=== PATIENT | male | born 1960 | race Caucasian/White ===

== ENCOUNTER 2022-12-12 16:40 | Inpatient (IN) | payer MEDICAID, SELFPAY ==
[2022-12-12] VITALS (12 sets, daily range): BP systolic 116–158; BP diastolic 56–117; PULSE 61–129; RESP 10–38; TEMP 37.2–38.1; O2SAT 90–93
[2022-12-12] MEDS: Normal Saline Flush 10 ML SYR (18:50)
[2022-12-12] MEDS: Ketamine 50 MG/5 ML SYRINGE (18:50)
--- NOTE | 2022-12-12 19:02 | HPE_ITS ---
Date of service: 12/12/22 Time of Service: 19:02 Assessment and Plan Assessment and plan (1) Acute respiratory failure: Status: Acute Assessment and plan: Unclear etiology but likely combination of CHF and COPD. CTA chest w/o pulmonary emboli and no acute process noted. CXR w/o acute process. Cont IV diureses. Cont nebs and Symbicort. He was given a dose of IV solumedrol at [facility]. BIPAP. He is a CO2 retainer. VBG ordered. (2) Congestive heart failure: Status: Chronic Assessment and plan: Previous DC No echocardiogram since 2019. Echo ordered. Cont IV lasix and spironolactone. Cont lisinopril. Pending echo results, will consider more goal directed therapies if indicated. (3) PALMA (nonalcoholic steatohepatitis): Status: Acute Assessment and plan: Mild transaminitis. (4) COPD (chronic obstructive pulmonary disease): Status: Chronic Assessment and plan: As above. (5) Facial laceration: Status: Acute Assessment and plan: Repaired in ED. (6) Troponin level elevated: Status: Acute Assessment and plan: Type II demand ischemia. Troponin trended downward. (7) Facial cellulitis: Status: Acute Assessment and plan: Questionable whether he has cellulitis. There are furuncles on the left jawline/neck that could be a source. Received a dose of vanocmycin 1500 mg IV at [facility]. Will re-evaluate in AM and make decision on further antibiotics. Blood cultures obtained here and are pending. (8) Tinea cruris: Status: Acute Assessment and plan: Also likely tinea shelton and tinea of chest wall. Nystatin powder to groin, cream to chest. He would benefit from selsun shampoo to bearded area. History of Present Illness History of Present Illness Chief Complaint: Shortness of air, facial laceration, fall Narrative: This is a 62 yo male with a PMH of CHF on lasix, COPD not on supplemental O2, CAD, PALMA, liver fibrosis, DM2, Diabetic leg ulcers, tobacco abuse disorder, h/o cocaine use. He presented to the ED at [facility] early in the AM of date of admission. He stated he mis-judged the distance he was from a chair when he went to sit and slipped onto the floor. He hit the right side of his face and incurred a laceration (1 above right eyebrow). Questionable LOCC; called him 2-3 times before he answered. In the ED at [facility] he denied CP/palpitations or dizziness prior to falling. Upon arrival his O2 saturation on RA was 78%. He had a visit with his PCP the day prior to admission and was thought to have a left sided facial cellulitis and was started on Bactrim. His RA O2 saturation in the office then was 83%. It is unclear what his typical RA O2 saturation is. He has a history of anasarca and is on 160mg lasix and 25mg spironolactone daily. Last echocardigram was in 2019; notes from the [facility] ED stated he no showed for a cardiology follow up and echo in 2020. Lab: WBC 11.6. Hgb 14.2. Na 138. K 3.8. AST 75. ALT 70. Creatinine 1.05. Troponin 207 > 129. NTProBNP 885. UDS + for THC. He was initiated on BiPAP; given a total of 3mg Ativan over the course of the day while at [facility], then a dose of Ketamine prior to transfer. Upon arrival at [facility] he was obtunded and noted to actually be on CPAP rather than BIPAP; narcotized by elevated pCO2 most likely. Changed to BiPAP and his level of consciousness improved significantly to where he was wanting to take off the mask and wanting to leave. He then described generalized soreness but no specific area of pain. Another dose of Ketamine, 50mg IV administered, then a precedex drip initiated. Admitted to the ICU. Review of Systems All systems reviewed & are unremarkable except as noted in HPI and below and Unobtainable due to (Limited ROS obtained d/t decreased LOC. ) [facility] All Active Problems (Updated 12/12/22 @ 19:54 by Paul Kc MD) Tinea cruris (Acute) Facial cellulitis (Acute) Troponin level elevated (Acute) Facial laceration (Acute) COPD (chronic obstructive pulmonary disease) (Chronic) PALMA (nonalcoholic steatohepatitis) (Acute) Congestive heart failure (Chronic) Acute respiratory failure (Acute) Social History Smoking/Tobacco Use Status: Current every day Smoking risk assessment performed?: Yes Meds Allergies and Home Medications Allergies Allergy/AdvReac Type Severity Reaction Status Date / Time No Known Allergies Allergy Unverified 12/12/22 19:24 Home Medications Medication Instructions Recorded Confirmed Type albuterol sulfate 90 mcg/actuation 2 puff inhalation Q4H PRN 12/12/22 12/12/22 History aerosol inhaler amitriptyline 10 mg tablet 10 mg PO QHS 12/12/22 12/12/22 History aspirin 81 mg tablet 81 mg PO DAILY 12/12/22 12/12/22 History atorvastatin 80 mg tablet 80 mg PO DAILY 12/12/22 12/12/22 History baclofen 5 mg tablet 5 mg PO 3XD PRN 12/12/22 12/12/22 History blood sugar diagnostic (FreeStyle 12/12/22 12/12/22 History Lite Strips) blood-glucose meter 12/12/22 12/12/22 History budesonide-formoterol HFA 160 2 puff inhalation BID 12/12/22 12/12/22 History mcg-4.5 mcg/actuation aerosol inhaler clopidogrel 75 mg tablet 75 mg PO DAILY 12/12/22 12/12/22 History compression socks, large 12/12/22 12/12/22 History compression socks, large 12/12/22 12/12/22 History dapagliflozin 10 mg tablet 10 mg PO DAILY 12/12/22 12/12/22 History dapagliflozin 10 mg tablet 10 mg PO DAILY 12/12/22 12/12/22 History (Farxiga) ezetimibe 10 mg tablet 10 mg PO DAILY 12/12/22 12/12/22 History folic acid 1 mg tablet 1 mg PO DAILY 12/12/22 12/12/22 History furosemide 40 mg tablet 80 mg PO DAILY 12/12/22 12/12/22 History gabapentin 600 mg tablet 600 mg PO TID 12/12/22 12/12/22 History inhalational spacing device 12/12/22 12/12/22 History (ProChamber) lisinopril 2.5 mg tablet 2.5 mg PO DAILY 12/12/22 12/12/22 History metformin 500 mg tablet 500 mg PO BID 12/12/22 12/12/22 History metoprolol tartrate 50 mg tablet 50 mg PO BID 12/12/22 12/12/22 History sildenafil 50 mg tablet 50 mg PO PRN PRN 12/12/22 12/12/22 History spironolactone 25 mg tablet 25 mg PO DAILY 12/12/22 12/12/22 History sulfamethoxazole 800 1 tab PO BID 12/12/22 12/12/22 History mg-trimethoprim 160 mg tablet trazodone 100 mg tablet 100 mg PO HS 12/12/22 12/12/22 History trazodone 50 mg tablet 50 mg PO QHS 12/12/22 12/12/22 History Exam Narrative Exam Narrative: BiPAP in place. Arouses to physical stimuli. Const General: no acute distress Nutritional Appearance: obese Orientation: obtunded HENVA Head: abrasion Head images: 1. 1 laceration; repaired with suture in place. Hemostatic. Face and sinus: abrasion and laceration Neck Neck: nontender and other (General normal motion noted. ) Resp Effort & Inspection: normal respiratory effort Auscultation: diminished lung sounds, no rales, no rhonchi and no wheezes Cardio Rate: tachycardic Rhythm: regular rhythm Heart Sounds: S1 normal and S2 normal GI Inspection: obesity Palpation: soft Auscultation: normal bowel sounds General: other (Mao catheter present) Skin General skin exam: dry skin (ears) and erythema (vs bruising of left side of face. ) Lesions: lesion noted (left jaw line with pustule(s).) Rashes: other (depigmented, circumferential lesions of chest wall. ) Wounds: wounds noted (known diabetic ulcers of lower exts with bandages in place. ) Neuro General: no focal motor deficits Cranial Nerves: facial strength normal Extrem General: edema Laterality: bilateral (Lower exts. and hands. ) Results Labs Result diagrams: 12/13/22 06:18 12/13/22 06:18 Last Vital Signs Pulse 116 H 12/12/22 18:46 Resp 19 12/12/22 18:31 BP 141/74 H 12/12/22 18:46 Pulse Ox 92 12/12/22 18:46 Time Spent Time spent with Patient: 40-54 minutes Time was spent: preparing to see the patient(eg.review tests), obtaining and/or reviewing separately otained hiistory, ordering medications,tests, procedures, referring, communicating with other health career agent and indepentently interpreting results
[2022-12-12] MEDS: dexmedeTOMidine IN 0.9 % NACL 400 MCG/100 ML BTL IV (19:30)
[2022-12-12 21:18] LABS: BE (Venous) 13 mmol/L (-2-3); HCO3 (Venous) 38 mmol/L (23-28); O2 Sat (Venous) 97 %; TCO2 (Venous) 34 mmol/L (24-29); pH (Venous) 7.39 (7.31-7.41); pO2 (Venous) 96 mmHg
[2022-12-12 21:22] LABS: pCO2 (Venous) 63 mmHg (41-51)
[2022-12-12] MEDS: Nystatin POWDER 60 GM JAR TP (21:46)
[2022-12-12] MEDS: Nystatin CREAM 15 GM TUBE TP (21:46)
[2022-12-12] MEDS: Nicotine 21 MG/24 HR PATCH TD (21:52)
[2022-12-12] MEDS: Enoxaparin 40 MG/0.4 ML SYR SC (21:52)
[2022-12-13] VITALS (29 sets, daily range): BP systolic 108–148; BP diastolic 57–106; PULSE 70–147; RESP 1–38; TEMP 36.7–37.3; O2SAT 86–96
[2022-12-13] MEDS: Albuterol/Ipratropium 3 ML UPD VIAL UPD ×5 (01:54→23:48)
[2022-12-13] MEDS: dexmedeTOMidine IN 0.9 % NACL 400 MCG/100 ML BTL IV (05:25)
[2022-12-13 06:29] LABS: Abs Immature Grans 0.05 10^3/uL (0.0-0.06); Absolute Basophil Count 0.03 10^3/uL (0.0-0.2); Absolute Lymphocyte Count 1.01 10^3/uL (1.2-3.4); Absolute Monocyte Count 1.04 10^3/uL (0.1-0.8); Absolute Neutrophil Count 10.87 10^3/uL (1.2-6.7); BE (Venous) 13 mmol/L (-2-3); Basophils % 0.2; HCO3 (Venous) 39 mmol/L (23-28); HCT 43.3 % (40.0-50.0); HGB 13.4 g/dL (13.5-17.5); Immature Grans % 0.4; Lymphocytes % 7.8; MCH 29.6 pg (27.0-33.0); MCHC 30.9 % (32.0-36.0); MCV 96 fL (80-95); MPV 9.5 fL (8.0-11.0); Neutrophils % 83.6; O2 Sat (Venous) 70 %; Platelet Count 249 10^3/uL (130-400); RBC 4.53 10^6/uL (4.36-5.78); RDW 14.4 % (11.8-14.1); RDW-SD 50.1 fL; TCO2 (Venous) 35 mmol/L (24-29); pH (Venous) 7.33 (7.31-7.41); pO2 (Venous) 39 mmHg
[2022-12-13 06:31] LABS: pCO2 (Venous) 74 mmHg (41-51)
--- NOTE | 2022-12-13 06:45 | RT.EKG_ITS ---
APPROVED REPORT Exam: Resting ECG Reason for Exam: elevated troponin Patient Location: I HR:81 bpm ECG Measurements Heart Rate 81 AXIS GA 211 P 81 QRSd 193 QRS 68 QT 367 T 90 QTc 426 Conclusion Sinus rhythm...normal P axis, V-rate 50- 99 Anteroseptal infarct, age indeterminate...Q >35mS, T neg, V1-V2
[2022-12-13 06:54] LABS: ALT 59 U/L (16-63); AST 71 U/L (15-37); Albumin 3.3 g/dL (3.4-5.0); Alkaline Phosphatase 116 U/L (46-116); Anion Gap 5.7 mmol/L (3-11); BUN 17 mg/dL (7-18); Bilirubin, Total 0.5 mg/dL (0.2-1.0); CO2 36.3 mmol/L (21.0-32.0); Calcium 9.4 mg/dL (8.5-10.1); Chloride 97 mmol/L (98-107); Estimated GFR 85.63 (mL/min/1.73m2); Glucose 141 mg/dL (74-106); Magnesium 2.2 mg/dL (1.8-2.4); Potassium 3.9 mmol/L (3.5-5.1); Sodium 139 mmol/L (136-145); Total Protein 7.8 g/dL (6.4-8.2)
[2022-12-13 06:56] LABS: Troponin I 3742 ng/L (<or=60)
[2022-12-13] MEDS: Budesonide/Formoterol 160/4.5 6 GM 60 PUFF INH IH ×2 (08:09→19:42)
[2022-12-13] MEDS: Lisinopril 5 MG TAB 2.5 MG PO (08:31)
[2022-12-13] MEDS: Clopidogrel 75 MG TAB PO (08:31)
[2022-12-13] MEDS: Furosemide 100 MG/10 ML VIAL 80 MG IVP (08:31)
[2022-12-13] MEDS: Metoprolol 50 MG TAB PO ×2 (08:31→19:42)
[2022-12-13] MEDS: Ezetimibe 10 MG TAB PO (08:31)
[2022-12-13] MEDS: Gabapentin 600 MG TAB PO ×3 (08:31→19:42)
[2022-12-13] MEDS: Aspirin 81 MG CHEW PO (08:32)
[2022-12-13] MEDS: Nystatin POWDER 60 GM JAR TP ×2 (08:35→19:43)
[2022-12-13] MEDS: Nystatin CREAM 15 GM TUBE TP ×3 (08:36→19:43)
[2022-12-13] MEDS: Spironolactone 25 MG TAB PO (08:56)
--- NOTE | 2022-12-13 09:11 | PDOC.CMIN ---
- If Service Date Differs Date of service: 12/13/22 Time of Service: 09:11 Care Management Initial Assess REASON FOR HOSPITALIZATION:: Acute respiratory failure, Cellulitis, NSTEMI PAST MEDICAL HISTORY/PAST SURGICAL HISTORY:: PMH of CHF on lasix, COPD not on supplemental O2, CAD, PALMA, liver fibrosis, DM2, Diabetic leg ulcers, tobacco abuse disorder, h/o cocaine use. He presented to the ED at [facility] early in the AM of date of admission. He stated he mis-judged the distance he was from a chair when he went to sit and slipped onto the floor. He hit the right side of his face and incurred a laceration (1 above right eyebrow). Questionable LOCC; called him 2-3 times before he answered. In the ED at [facility] he denied CP/palpitations or dizziness prior to falling. Upon arrival his O2 saturation on RA was 78%. He had a visit with his PCP the day prior to admission and was thought to have a left sided facial cellulitis and was started on Bactrim. His RA O2 saturation in the office then was 83%. It is unclear what his typical RA O2 saturation is. He has a history of anasarca and is on 160mg lasix and 25mg spironolactone daily. Last echocardigram was in 2019; notes from the [facility] ED stated he no showed for a cardiology follow up and echo in 2020. Tinea cruris (Acute). Facial cellulitis (Acute). Troponin level elevated (Acute). Facial laceration (Acute). COPD (chronic obstructive pulmonary disease) (Chronic). PAMLA (nonalcoholic steatohepatitis) (Acute). Congestive heart failure (Chronic). Acute respiratory failure (Acute) PREVIOUS FUNCTIONAL STATUS/SOCIAL/FAMILY SUPPORTS:: Resides in [place] with , Radha. 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 Pranav shares that employment has been limited due to physical functioning and increased medical issues. CURRENT FUNCTIONAL STATUS:: Pranav has an above the eyebrow laceration with sutures in place. Off Bipap now on nasal cannula, daughter and have been present at bedside. Pranav is pleasant in interaction today, he is sitting up in his chair playing pool on his phone. He is forthcoming with information and agreeable to increased service supports. ADVANCE DIRECTIVES:: None on file. Has patient been provided with info about the portal/API?: No Did the patient sign up for the portal?: No CODE STATUS:: Full Code INSURANCE COVERAGE / FINANCIAL ISSUES:: Medicaid of [place] CURRENT HOME/COMMUNITY SERVICES/EQUIPMENT:: None, currently. PRIMARY CARE PHYSICIAN:: Fidelina oNlasco POTENTIAL DISCHARGE NEEDS:: [facility] referral PATIENT/FAMILY EDUCATION NEEDS:: Review discharge instructions, discuss Ask Me Three. ANTICIPATED BARRIERS TO DISCHARGE:: None identified. TRANSPORTATION:: Via private vehicle with . PLAN:: Pranav will return home when ready per MD. He will follow up with his PCP and plan of care as prescribed, and transport via private vehicle with his . CM will complete referral to [facility] RN CM as discussed.
[2022-12-13] MEDS: VANCOMYCIN/WATER (PEG) 1.25 GM/250 ML BAG IV ×2 (09:19→17:39)
[2022-12-13] MEDS: Enoxaparin 100 MG/ML SYR SC ×2 (09:23→21:55)
[2022-12-13 10:01] LABS: Troponin I 3192 ng/L (<or=60)
--- NOTE | 2022-12-13 10:57 | WOUNDCONS ---
- If Service Date Differs Date of service: 12/13/22 Time of Service: 12:30 Wound Initial Evaluation Narrative: This is a 62 year old male transferred to us from [facility] for acute respiratory failure. He was found to have an initial O2 sat of 78% on arrival to [facility]. He was sedated and placed on CPAP at [facility]. Upon arrival to [facility] he was found to be obtunded. He was placed on Bipap and became more alert. The pt does have a history of Tinea cruris (Acute), and Facial cellulitis (Acute), that the MD has prescribed appropriate treatment for. Wound care has been asked to evaluate the patient's legs. The pt has been seeing [facility] wound care since last fall for swollen, weeping, blistery lower extremities. The pt states that it initially started with scratches to his lower extremities. Then he developed edema and the legs began to weep. For the most part the pt states that compression and an ointment had been used and most recently Unna boots. The pt states that the wounds did heal and he was to follow up with wound care prn. About 3 weeks ago he again developed edema, blisters, and weeping legs. He was seen at [facility] for treatment. At this time I removed Unna boots and compression wraps from his legs. Each dressing had less than 1cc of drainage. Medical Hx: Troponin level elevated (Acute) Facial laceration (Acute) from a fall at home. States he missed the chair. COPD (chronic obstructive pulmonary disease) (Chronic) PALMA (nonalcoholic steatohepatitis) (Acute), with a large round abdomen. Congestive heart failure (Chronic) Acute respiratory failure (Acute) CAD, DM2 (which pt states is a new diagnosis), is a smoker, and has a history of cocaine use. His UDS did come back positive for THC. I did discuss with the MD the use of farxiga has common side effects of fungal infections in regards to the tinea cruris and tinea shelton. Farxiga is not available from our pharmacy so will be held at this time. Pt also states that he has only been doing sponge baths for the past 5 months as he has not been able to get his legs up over the edge of the tub. He states that he recently bought a shower chair. Advised that some shower chairs can be place over the edge of the tub so that he can sit on the bench and then slide over into the tub and can lift his legs over the edge. States that due to the enlarged abdomen, he has had difficulty raising his legs, washing his feet, and dressing his feet. Pt also informed that he can obtain a sponge on a stick that he can use to wash his lower extremities and also apply lotion. He has not been able to get much assistance from his with bathing as they work opposite shifts. WBC 13.0 Troponins 3742, 3192 Blood cultures pending - Wound Bilateral Lower Tib/Fib(lower leg) Wound Type: Other (nothing open or weeping) Wound General Appearance: Healing Well Wound Surrounding Tissue Appearance: [place] - Circulation, Sensation, Motion Edema Degree: Trace Peripheral Pulse Strength: Normal Capillary Refill: Delayed (4 seconds, toes cold to touch) Skin Temperature: Cool Skin Color: [place] - CAROLYN Left CAROLYN: 1.07 Right CAROLYN: 1.11 Blood Pressure: 148/79 Pulse: 78 - Pain Pain Level: 0 Pain Scale Used: Adult Legs cleaned with moistened Debrisoft sponge to remove dry skin. Does have moderate crusting over toes. No open or weeping areas noted on either leg. Denies any painful areas. Lubriderm lotion applied to both legs and allowed to absorb. AMOR Hose applied by primary nurse. Advised pt that due to his CHF, high compression is not recommended. - Photo Photo: - Treatment/Dressing Change Topicals/Ointments: Other (Lubriderm) Cleanse With: Saline, Debrisoft Dressing Types: Other (AMOR Hose) - Nutrition Education Reviewed Nutrition Education: Yes Note: Discussed a diabetic diet with pt. Pt states he does not follow any particular diet as he has not been officially diagnosed with diabetes. Advised that we will have the side trimmer come to see him. - Recomendation Recomendation:: Bilateral lower extremities: 1. Wash lower extremities with soap and water daily. 2. Pat dry. 3. Liberally apply Lubriderm lotion to legs BID. Allow to absorb. 4. Apply AMOR Hose bilaterally in the am, off in at HS. 5. Keep legs elevated while in bed or seated position. Extensive discussion with pt regarding proper foot wear. 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 He now works in a seated position. He tries to ambulate at least every 2 hours. Pt states that [employer] no longer sells retail for shoes, so has heard about [facility] in [place] for shoes. Also advised that he should develop a relationship with a enterprise integration architect for nail care and foot care. Discussed that neuropathy (numbness) is common with diabetes, so protecting his feet is very important. Pt usually walks in his stocking feet at home. Advised that he should wear slippers with a firm sole so that he doesn't get any foreign bodies in his feet. Informed that a small pebble can cause significant damage to feet. Discussed wounds and osteomyelitis. Pt verbalized understanding that amputations are common as well. Also discussed to keep his legs elevated when he can. He does have a recliner at home that he doesn't use. States he sits at the kitchen table when he is home. Advised to sit in his recliner and to keep his legs elevated as much as possible to relieve edema. Also advised to keep his legs elevated while in bed. Physcian/Nurse Practioner Notified: Yes (Dr. Kc) Referrals: Podiatry Treatment Time - Time Total Time Spent with Patient: 60 - Patient Will be Seen Weekly Treatment: 1x/wk - For: For:: 2 weeks
--- NOTE | 2022-12-13 13:50 | PGE_ITS ---
Date of Service Date of service: 12/13/22 Time of Service: 13:50 Assessment and Plan Assessment and plan (1) Acute respiratory failure: Status: Acute Assessment and plan: Unclear etiology but likely combination of CHF and COPD. CTA chest w/o pulmonary emboli and no acute process noted. CXR w/o acute process. Cont IV diureses. Cont nebs and Symbicort. He was given a dose of IV solumedrol at [facility]. BIPAP at night. He is a CO2 retainer. Titrate down supplemental O2 allowing for O2 saturations to be as low as 90%. Actually, may typically have baseline O2 saturations that are lower given he shows CO2 retention with supplemental O2. (2) Congestive heart failure: Status: Chronic Assessment and plan: Previous ID No echocardiogram since 2019. Echo ordered for Wednesday. Cont IV lasix and spironolactone. Cont lisinopril. Pending echo results, will consider more goal directed therapies if indicated. (3) PALMA (nonalcoholic steatohepatitis): Status: Acute Assessment and plan: Mild transaminitis. (4) COPD (chronic obstructive pulmonary disease): Status: Chronic Assessment and plan: As above. (5) Facial laceration: Status: Acute Assessment and plan: Repaired in ED. (6) Troponin level elevated: Status: Acute Assessment and plan: Troponins of 207 > 129 at [facility]. Repeat this AM was 3742. EKG w/o acute ischemic findings. Discussed with cardiology at [facility] [place]. They agreed with initiating ACS protocal with heparin drip. Because the coag analyzer was down, Lovenox 1mg/kg Q12H initiated instead. Trending troponins. Echocardiogram on Wednesday. If stabilizes and shows no urgent need for cardiac catheterization, nuclear med stress test when stabilizes. (7) Facial cellulitis: Status: Acute Assessment and plan: Improving erythema. There are furuncles on the left jawline/neck that could be a source. Received a dose of vanocmycin 1500 mg IV at [facility]. WBC count has decreased. Pharmacy to dose further vanocmycin. Blood cultures obtained here and are pending. (8) Tinea cruris: Status: Acute Assessment and plan: Also likely tinea shelton and tinea of chest wall. Nystatin powder to groin, cream to chest. He would benefit from selsun shampoo to bearded area. (9) Diabetic ulcer of ankle: Status: Acute Assessment and plan: Healed. Skin care. Control glucose and edema. Subjective Subjective Patient reports: no new complaints, feels better, tolerating a regular diet and fever (38.1 at 18:33 12/12/22; afebrile since.); denies nausea or vomiting Interval history since last seen: Tearful this AM when discussing his situation with nursing. He had stated he wanted to leave but then accepted the need to stay for further monitoring and tx. Exam Narrative Exam Narrative: Awake and alert on nasal cannula. Interactive. Const General: no acute distress Nutritional Appearance: obese Orientation: obtunded HENMT Head: abrasion Face and sinus: abrasion and laceration Neck Neck: nontender and other (General normal motion noted. ) Resp Effort & Inspection: normal respiratory effort Auscultation: diminished lung sounds, no rales, no rhonchi and no wheezes Cardio Rate: tachycardic Rhythm: regular rhythm Heart Sounds: S1 normal and S2 normal GI Inspection: obesity Palpation: soft Auscultation: normal bowel sounds General: other (Mao catheter present) Skin General skin exam: dry skin (ears) and erythema (left side of face/improved) Lesions: lesion noted (left jaw line with pustule(s).) Rashes: other (depigmented, circumferential lesions of chest wall. ) Wounds: wounds noted (Healed diabetc ulcers of ankles. ) Neuro General: no focal motor deficits Cranial Nerves: facial strength normal Extrem General: edema Laterality: bilateral (Lower exts. and hands. ) Objective Last Vital Signs Temp 36.7 C 12/13/22 09:43 Pulse 91 H 12/13/22 12:59 Resp 22 12/13/22 12:59 BP 129/73 12/13/22 10:00 Pulse Ox 94 12/13/22 12:59 Laboratory Results - last 24 hr 12/12/22 12/13/22 12/13/22 21:10 06:18 06:18 WBC 13.00 H RBC 4.53 Hgb 13.4 L Hct 43.3 MCV 96 H MCH 29.6 MCHC 30.9 L RDW 14.4 H Plt Count 249 MPV 9.5 Immature Gran % 0.4 Neutrophils % 83.6 Lymphocytes % 7.8 Monocytes % 8.0 Eosinophils % 0.0 Basophils % 0.2 Nucleated RBC % 0.0 Absolute Neutrophils 10.87 H Absolute Lymphocytes 1.01 L Absolute Monocytes 1.04 H Absolute Eosinophils 0.00 Absolute Basophils 0.03 PT INR APTT VBG pH 7.39 VBG pCO2 63 H* VBG pO2 96 VBG HCO3 38 H VBG Total CO2 34 H VBG O2 Saturation 97 VBG Base Excess 13 H Sodium 139 Potassium 3.9 Chloride 97 L Carbon Dioxide 36.3 H Anion Gap 5.7 BUN 17 Creatinine 1.0 Est GFR (CKD-EPI 2020) 85.63 Glucose 141 H Calcium 9.4 Magnesium 2.2 Total Bilirubin 0.5 AST 71 H ALT 59 Alkaline Phosphatase 116 Troponin I 3742 H* Total Protein 7.8 Albumin 3.3 L 12/13/22 12/13/22 12/13/22 06:18 08:34 08:35 WBC RBC Hgb Hct MCV MCH MCHC RDW Plt Count MPV Immature Gran % Neutrophils % Lymphocytes % Monocytes % Eosinophils % Basophils % Nucleated RBC % Absolute Neutrophils Absolute Lymphocytes Absolute Monocytes Absolute Eosinophils Absolute Basophils PT Cancelled INR Cancelled APTT Cancelled VBG pH 7.33 VBG pCO2 74 H* VBG pO2 39 VBG HCO3 39 H VBG Total CO2 35 H VBG O2 Saturation 70 VBG Base Excess 13 H Sodium Potassium Chloride Carbon Dioxide Anion Gap BUN Creatinine Est GFR (CKD-EPI 2020) Glucose Calcium Magnesium Total Bilirubin AST ALT Alkaline Phosphatase Troponin I Total Protein Albumin 12/13/22 09:28 WBC RBC Hgb Hct MCV MCH MCHC RDW Plt Count MPV Immature Gran % Neutrophils % Lymphocytes % Monocytes % Eosinophils % Basophils % Nucleated RBC % Absolute Neutrophils Absolute Lymphocytes Absolute Monocytes Absolute Eosinophils Absolute Basophils PT INR APTT VBG pH VBG pCO2 VBG pO2 VBG HCO3 VBG Total CO2 VBG O2 Saturation VBG Base Excess Sodium Potassium Chloride Carbon Dioxide Anion Gap BUN Creatinine Est GFR (CKD-EPI 2020) Glucose Calcium Magnesium Total Bilirubin AST ALT Alkaline Phosphatase Troponin I 3192 H* Total Protein Albumin Time Spent with Patient Time Spent with Patient: 25-34 minutes Time was spent: preparing to see the patient(eg.review tests), ordering medications,tests, procedures, indepentently interpreting results and counseling the patient
[2022-12-13 13:59] LABS: Troponin I 3203 ng/L (<or=60)
[2022-12-13 14:18] LABS: APTT (LRH) 29.6 secs (21.3-28.4); Protime (LRH) 10.2 secs (9.1-10.6)
[2022-12-13 16:56] LABS: Troponin I 2726 ng/L (<or=60)
[2022-12-13] MEDS: Normal Saline Flush 10 ML SYR ×2 (17:39→17:48)
[2022-12-13] MEDS: Atorvastatin 40 MG TAB 80 MG PO (19:42)
[2022-12-13] MEDS: Normal Saline 250 ML (23:38)
[2022-12-14] VITALS (48 sets, daily range): BP systolic 100–149; BP diastolic 52–116; PULSE 77–118; RESP 1–31; TEMP 36.9–37.5; O2SAT 83–100
[2022-12-14] MEDS: VANCOMYCIN/WATER (PEG) 1.25 GM/250 ML BAG IV ×2 (03:43→18:02)
[2022-12-14 06:19] LABS: Abs Immature Grans 0.06 10^3/uL (0.0-0.06); Absolute Basophil Count 0.04 10^3/uL (0.0-0.2); Absolute Eosinophil Count 0.11 10^3/uL (0.0-0.7); Absolute Lymphocyte Count 1.82 10^3/uL (1.2-3.4); Absolute Monocyte Count 0.94 10^3/uL (0.1-0.8); Basophils % 0.4; HCT 44.1 % (40.0-50.0); HGB 13.6 g/dL (13.5-17.5); Immature Grans % 0.6; Lymphocytes % 16.8; MCH 29.4 pg (27.0-33.0); MCHC 30.8 % (32.0-36.0); MCV 96 fL (80-95); MPV 10.2 fL (8.0-11.0); Monocytes % 8.7; Neutrophils % 72.5; Platelet Count 226 10^3/uL (130-400); RBC 4.62 10^6/uL (4.36-5.78); RDW 14.6 % (11.8-14.1); RDW-SD 50.5 fL; WBC 10.84 10^3/uL (4.4-10.8)
[2022-12-14 06:27] LABS: Absolute Neutrophil Count 7.86 10^3/uL (1.2-6.7)
[2022-12-14 06:34] LABS: ALT 54 U/L (16-63); AST 61 U/L (15-37); Alkaline Phosphatase 104 U/L (46-116); Anion Gap 1.6 mmol/L (3-11); BUN 23 mg/dL (7-18); Bilirubin, Total 0.6 mg/dL (0.2-1.0); CO2 40.4 mmol/L (21.0-32.0); CREATININE 1.1 mg/dL (0.70-1.30); Calcium 9.1 mg/dL (8.5-10.1); Chloride 98 mmol/L (98-107); Estimated GFR 76.37 (mL/min/1.73m2); Glucose 108 mg/dL (74-106); Potassium 3.7 mmol/L (3.5-5.1); Sodium 140 mmol/L (136-145); Total Protein 7.2 g/dL (6.4-8.2)
[2022-12-14 06:36] LABS: Troponin I 1808 ng/L (<or=60)
--- NOTE | 2022-12-14 07:03 | W.PULMCC ---
General Date of Service Date of service: 12/14/22 Time of Service: 07:03 Reason for Admission to ICU: Hypoxic and hypercapnic respiratory failure Assessment and Plan Assessment and plan (1) NSTEMI (non-ST elevated myocardial infarction): Status: Acute (2) Respiratory failure with hypoxia and hypercapnia: Status: Acute (3) Diabetic ulcer of ankle: Status: Acute (4) Facial cellulitis: Status: Acute (5) COPD exacerbation: Status: Acute (6) CHF exacerbation: Status: Acute (7) PALMA (nonalcoholic steatohepatitis): Status: Acute (8) Leukocytosis: Status: Acute Assessment and plan: This is a 62 yo admitted to the ICU for hypoxic and hypercapnic respiratory failure due to COPD and CHF exacerbation as well as a facial cellulitis. His CO2 retention is chronic but should be evaluated as an outpatient to assess the need for NIV. I have adjusted his inhaler regimen to include LAMA coverage and have decreased his ICS. I also have started him on treatment for a COPD exacerbation - prednisone and azithromycin. He is being actively diuresed. Recommendations Pulmonary: Hypoxic and Hypercapnic respiratory failure - wean O2 needs - no BiPAP tonight - evaluation as an outpatient in 2-4 weeks for NIV needs with me COPD exacerbation - started prednisone 40mg for 5 days - started azithromycin for 5 days - made Duonebs QID from q6h - changed Symbicort 160 to 80 dosage - added Spiriva Cardiac: NSTEMI - received therapeutic Lovenox and Plavix - [facility] [place] - no urgent cath need - MPI when stable - echo today - no need to continue trending troponins CHF Exacerbation - continue with diuresis - if bicarb become too high >50 can diurese with Diamox Renal: No acute concerns - strict I/O's I&O: Intake & Output 12/11/22 12/12/22 12/13/22 12/14/22 23:59 23:59 23:59 23:59 Intake Total 64.685 / 64.685 1537.736 / 1537.736 250 / 250 Output Total 2600 / 2600 535 / 535 Balance 64.685 / 64.685 -1062.264 / -1062.264 -285 / -285 Weight 99.3 kg 99 kg Daily Fluid Goal:: negative 1L in next 24 hours GI Nutrition: PALMA - not in acute liver failure Date of Last Bowel Movement: 12/11/22 Infectious Disease: Facial cellulitis - on vanc - no growth of blood cultures - MRSA screen ordered Hematologic: Leukocytosis - due to infection Endocrine: No acute concerns Lines: PIV Prophylaxis: on Lovenox Code Status: Resuscitation Status Full Code Subjective Critical and life-threatening events over the past 24 hours: This is co-morbidly ill 62 yo with COPD, CHF, diabetes and PALMA who is admitted after transfer from [facility] for hypoxic respiratory failure. He was started on BiPAP and was improving. He remains on BiPAP at night currently. He also had a troponin elevation, and is being treated for NSTEMI per [facility] cardiology. While at [facility] he did have respiratory acidosis with a pH of 7.19 and a CO2 of >91. Currently his pH is corrected and his CO2 is in the 60's-70's (more likely his baseline). He had a CTPE at [facility] with no PE or other acute abnormality. His last echo from [facility] was 06/10/20 and shows an EF 65%, normal RV size and function. Mild , moderate AI. PAP normal at 20mmHg. He is receiving vancomycin out of concern for a facial cellulitis. He is not receiving treatment for a COPD exacerbation, however is being actively diuresed. He states he is feeling better and has noticed the swelling decrease in his lower legs. He tells me he has had a PFT a long time ago but cannot recall when exactly. There were no PFT reports in [facility] EMR that I could see. Exam Narrative Exam Narrative: Gen: NAD, normal respiratory effort, well-nourished HENT: PERRL, abrasions and lacerations on face. hematoma right eye Chest: No respiratory distress, normal appearance of chest, clear to auscultation bilaterally, some bibasilar crackles, no wheeze Heart: regular rate and rhythym, no murmurs, rubs or gallops Abdomen: Non-distended, soft, non tender Extremities: No clubbing, 2+ edema of thigh, cyanosis, rashes Neuro: AAOx3 , non focal Psych: cooperative, appropriate mental affect Most Recent VS/Results Last Vital Signs Temp 36.9 C 12/14/22 00:02 Pulse 98 H 12/14/22 04:22 Resp 20 02/06/23 04:22 BP 127/69 12/14/22 04:00 Pulse Ox 99 12/14/22 04:22 Laboratory Results - last 24 hr 12/13/22 12/13/22 12/13/22 08:34 08:35 09:28 WBC RBC Hgb Hct MCV MCH MCHC RDW Plt Count MPV Immature Gran % Neutrophils % Lymphocytes % Monocytes % Eosinophils % Basophils % Nucleated RBC % Absolute Neutrophils Absolute Lymphocytes Absolute Monocytes Absolute Eosinophils Absolute Basophils PT Cancelled INR Cancelled APTT Cancelled Sodium Potassium Chloride Carbon Dioxide Anion Gap BUN Creatinine Est GFR (CKD-EPI 2020) Glucose Calcium Total Bilirubin AST ALT Alkaline Phosphatase Troponin I 3192 H* Total Protein Albumin 12/13/22 12/13/22 12/13/22 09:28 09:28 13:25 WBC RBC Hgb Hct MCV MCH MCHC RDW Plt Count MPV Immature Gran % Neutrophils % Lymphocytes % Monocytes % Eosinophils % Basophils % Nucleated RBC % Absolute Neutrophils Absolute Lymphocytes Absolute Monocytes Absolute Eosinophils Absolute Basophils PT 10.2 INR 1.0 APTT 29.6 H Sodium Potassium Chloride Carbon Dioxide Anion Gap BUN Creatinine Est GFR (CKD-EPI 2020) Glucose Calcium Total Bilirubin AST ALT Alkaline Phosphatase Troponin I 3203 H* Total Protein Albumin 12/13/22 12/14/22 12/14/22 16:25 06:00 06:00 WBC 10.84 H RBC 4.62 Hgb 13.6 Hct 44.1 MCV 96 H MCH 29.4 MCHC 30.8 L RDW 14.6 H Plt Count 226 MPV 10.2 Immature Gran % 0.6 Neutrophils % 72.5 Lymphocytes % 16.8 Monocytes % 8.7 Eosinophils % 1.0 Basophils % 0.4 Nucleated RBC % 0.0 Absolute Neutrophils 7.86 H Absolute Lymphocytes 1.82 Absolute Monocytes 0.94 H Absolute Eosinophils 0.11 Absolute Basophils 0.04 PT INR APTT Sodium 140 Potassium 3.7 Chloride 98 Carbon Dioxide 40.4 H Anion Gap 1.6 L BUN 23 H Creatinine 1.1 Est GFR (CKD-EPI 2020) 76.37 Glucose 108 H Calcium 9.1 Total Bilirubin 0.6 AST 61 H ALT 54 Alkaline Phosphatase 104 Troponin I 2726 H* 1808 H* Total Protein 7.2 Albumin 3.0 L Review of Systems All systems reviewed & are unremarkable except as noted in HPI and below Time spent with patient Time spent in Critical Care: 60 Time spent in Critical care included: Coordination of care, Chart review, Documenting critically ill care, Time at immediate bedside and Discussing critically ill care with other medical staff Multi-Disciplinary Checklist Lines/Tubes CENTRAL LINE: no ARTERIAL LINE: no SPIVEY: yes, Spivey Day#: 3 ENDOTRACHEAL TUBE: no ICU Maintenance GLUCOSE 140-180mg/dL: yes NUTRITION AT GOAL: yes PRESSURE ULCER: yes, Ankle Grade: 1 RESTRAINTS: no ANTIBIOTICS(if yes, consider Stewardship): Yes Social Issues FAMILY UPDATED: no, Reason/Intervention: Patient able PT/OT: no, Reason/Intervention: not needed 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
[2022-12-14] MEDS: Albuterol/Ipratropium 3 ML UPD VIAL UPD ×4 (08:13→20:27)
[2022-12-14] MEDS: Budesonide/Formoterol 80/4.5 6.9 GM 60 PUFF INH IH ×2 (08:14→20:27)
[2022-12-14] MEDS: Tiotropium Bromide-Respimat 10 PUFF INH 2 PUFF IH (08:15)
[2022-12-14] MEDS: Aspirin 81 MG CHEW PO (08:34)
[2022-12-14] MEDS: Clopidogrel 75 MG TAB PO (08:35)
[2022-12-14] MEDS: Ezetimibe 10 MG TAB PO (08:35)
[2022-12-14] MEDS: predniSONE 20 MG TAB 40 MG PO (08:35)
[2022-12-14] MEDS: Metoprolol 50 MG TAB PO ×2 (08:35→20:27)
[2022-12-14] MEDS: Lisinopril 5 MG TAB 2.5 MG PO (08:36)
[2022-12-14] MEDS: Spironolactone 25 MG TAB PO (08:36)
[2022-12-14] MEDS: Azithromycin 250 MG TAB PO (08:36)
[2022-12-14] MEDS: Nystatin POWDER 60 GM JAR TP ×2 (08:40→20:29)
[2022-12-14] MEDS: Nystatin CREAM 15 GM TUBE TP ×3 (08:41→20:30)
[2022-12-14] MEDS: Normal Saline Flush 10 ML SYR (08:41)
[2022-12-14] MEDS: Furosemide 100 MG/10 ML VIAL 80 MG IVP (08:53)
[2022-12-14] MEDS: Gabapentin 600 MG TAB PO ×3 (08:54→20:27)
--- NOTE | 2022-12-14 10:30 | DI.US_ITS ---
APPROVED REPORT EXAM: Comprehensive 2D, Doppler, and color-flow Echocardiogram Patient Location: In-Patient Room/Bed: QPE544 Patternmaker All Around: Farrah Davis RDCS (AE) Indications: Acute respiratory failure, anasarca, copd, elevated troponin, smoker Other Information Study Quality: Adequate Conclusion Normal left ventricular wall thickness and chamber size. Estimated ejection fraction is 55 to 60%. Wall motion is normal Normal right ventricular size and systolic function Both atria are normal in size Aortic valve is sclerotic and probably trileaflet with mild regurgitation Committed right ventricular systolic pressure is 33 mmHg Wall motion Left Ventricle The left ventricle is normal size. The left ventricular systolic function is normal. The left ventric ular ejection fraction is within the normal range. There is normal left ventricular wall thickness. T here is normal LV segmental wall motion. There is no ventricular septal defect visualized. LVEF is 55 -60%. Right Ventricle The right ventricle is normal size. The right ventricular systolic function is normal. The RVSP is 33 .3 mmHg. Atria The left atrium size is normal. The right atrium size is normal. The interatrial septum is intact wit h no evidence for an atrial septal defect. Aortic Valve The Aortic valve is sclerotic. Aortic valve is probably trileaflet. No hemodynamically significant va lvular aortic stenosis. Mild aortic regurgitation. Mitral Valve The mitral valve is normal in structure. No evidence of mitral valve stenosis. Trace mitral regurgit ation. Tricuspid Valve The tricuspid valve is normal in structure. There is no tricuspid valve stenosis. Trace to mild tricu spid regurgitation. Pulmonic Valve The pulmonary valve is normal in structure. There is no pulmonic valvular stenosis. Trace pulmonic re gurgitation. Great Vessels The aortic root is normal in size. The ascending aorta is normal in size. Aortic arch is not well vis ualized. IVC is normal in size and collapses >50% with inspiration. Pericardium There is no pericardial effusion. 2D Dimensions IVSD d PLAX 0.90 cm M: 0.6-1.2 LV Vol A2C d MOD 107.8 mL LVPW d PLAX 0.91 cm M: 0.6 - 1.2 LV Vol A4C d MOD 129.3 mL LVID d PLAX 4.49 cm M: 4.2 - 5.8 LA vol/ BSA A4C s A-L 18.4 mL/m2 LVDs 3.15 cm M: 2.5 - 4.0 LA Area A4C s MOD 15.47 cm2 Ao Root d 3.36 cm M: 3.1 - 3.7 LV EF A4C MOD 55.9 % RA Area A4C 13.49 cm2 LV EF A2C MOD 60.3 % RA Vol/ BSA A4C s A-L 17.2 mL/m2 LV EF Biplane MOD 57.7 % Ao Asc Diam d 3.34 cm M: 2.6 - 3.4 SV 69.47 mL LV EF Teichholz 56.2 % SV Index 32.09 mL/m2 LVEF (Renae's) 57.70 % M: 52 - 72 LV Volume 88.00 mL M: 62 - 150 LV Volume Index 40.55 mL/m2 M: 34 - 74 LV Vol Biplane MOD 120.4 mL FS 29.20 % M-Mode TAPSE 2.56 cm (M/F) >1.7 LV Diastology MV E' medial 0.121 (>0.07 m/s) E/A Ratio 1.1 LV E/e MED 8.90 (<14) MV E Vmax 1.08 (0.4-1.3 m/s) MV E' lateral 0.124 (>0.1 m/s) MV A Vmax 1.00 (0.4-1.3 m/s) LV E/e LAT 8.65 (<14) MV E/A Ratio 1.06 MV E/E' medial 8.92 MV E/E' lateral 8.68 Aortic Valve LVOT Area 3.16 cm2 AoV Area Vmax 1.80 cm2 LVOT Vmax 1.25 m/s AoV Area/ BSA (Vmax) 0.83 cm2/m2 LVOT Mean Arjun. 0.90 m/s PEGGY Mean Arjun. 1.88 cm2 LVOT Peak Grad 6.2 mmHg PEGGY Mean Arjun. Index 0.87 cm2/m2 LVOT Mean Grad 3.7 mmHg AR DT 1227 msec LVOT VTI 0.237 m AR PHT 356 msec LVOT Diam s 2.00 cm AoV Vmax 2.19 m/s Velocity Ratio 0.57 AoV Mean Arjun. 1.50 m/s AoV Peak Grad 19.2 mmHg LVOT SV 75.03 mL AoV Mean Grad 10.3 mmHg AoV VTI 0.387 m AoV Area VTI 1.94 cm2 AoV Area/ BSA (VTI) 0.90 cm/m2 Mitral Valve MV DT 259 (160-240 msec) MV PHT 75 msec MV Area PHT 2.93 cm2 MV VTI 0.294 m MV Area VTI 2.55 (4.0-6.0 cm2) Pulmonary Valve PV Vmax 0.86 (0.5-1.5 m/s) RVOT Peak Gr. 2.03 mmHg PV Peak Grad 3.0 mmHg RVOT Mean Gr. 0.90 mmHg PV Mean Grad 1.7 mmHg RVOT VTI 0.108 m PV VTI 0.154 m RVOT Vmax 0.71 m/s Tricuspid Valve TR Peak Grad 30.3 mmHg TR Vmax 2.75 m/s RA Pressure 3.00 mmHg RVSP (TR) 33.3 mmHg
[2022-12-14] MEDS: Enoxaparin 100 MG/ML SYR SC (11:05)
--- NOTE | 2022-12-14 11:23 | PHA.REVIEW2 ---
Pharmacy Admission Review - Admission Clinical Review (Last Reviewed 12/12/22 @ 19:19 by Paul Kc MD) Leukocytosis (Acute) CHF exacerbation (Acute) COPD exacerbation (Acute) Respiratory failure with hypoxia and hypercapnia (Acute) NSTEMI (non-ST elevated myocardial infarction) (Acute) Diabetic ulcer of ankle (Acute) Tinea cruris (Acute) Facial cellulitis (Acute) Troponin level elevated (Acute) Facial laceration (Acute) PALMA (nonalcoholic steatohepatitis) (Acute) Acute respiratory failure (Acute) No Known Allergies Allergy (Unverified 12/12/22 19:24) Resuscitation Status Full Code Height 5 ft 10 in Weight 99 kg - Renal Dosing Renal Dosing: BUN 23 mg/dL (7-18) H 12/14/22 06:00 Creatinine 1.1 mg/dL (0.70-1.30) 12/14/22 06:00 Medications needing adjustments: Reviewed (crcl = 83, no adjustments needed) - Anticoagulation Anticoagulation: Hgb 13.6 g/dL (13.5-17.5) 12/14/22 06:00 Hct 44.1 % (40.0-50.0) 12/14/22 06:00 Plt Count 226 10^3/uL (130-400) 12/14/22 06:00 INR 1.0 (0.9-1.1) 12/13/22 09:28 Creatinine 1.1 mg/dL (0.70-1.30) 12/14/22 06:00 DVT Prophylaxis: Reviewed Medications: Enoxaparin Therapeutic Anticoagulation: Reviewed Medications: Enoxaparin (ACS: enoxaparin 100 mg q12h d/t inability to use heparin drip (coag machine down). also on plavix) - Opiate Usage Evaluate Pain Scale/Pains Meds: N/A - Relevant Labs Sodium 140 mmol/L (136-145) 12/14/22 06:00 Potassium 3.7 mmol/L (3.5-5.1) 12/14/22 06:00 Chloride 98 mmol/L (98-107) 12/14/22 06:00 Magnesium 2.2 mg/dL (1.8-2.4) 12/13/22 06:18 Electrolytes, C-Reactive P, ESR: Reviewed - DM Control DM Control: Glucose 108 mg/dL (74-106) H 12/14/22 06:00 Finger Stick Blood Glucose 108 Finger Stick Blood Glucose 108 Finger Stick Blood Glucose 108 Finger Stick Blood Glucose 108 DM Control: Reviewed (on sliding scale insulin aspart with meals, does not use insulin at home - takes farxiga (not available here) and metformin (held)) - Cardiac Review Cardiac Review: Troponin I 1808 ng/L (<or=60) H* 12/14/22 06:00 BP, HR, EF%: Reviewed (NSTEMI - on therapeutic lovenox + plavix. Echo today. Diuresing (lasix 80 mg IV daily + spironolactone). On lisinopril, metoprolol, spironolactone (home doses)) - Qtc Review QTc: Reviewed (QTc = 426 on 12/13) - IV to PO Switch IV Medications: Reviewed (lasix IV, switch to PO when appropriate) - Home Meds Home Med List reviewed: Reviewed Relevent Home Meds Not ordered & why?: symbicort inhaler reduced dose from 160/4.5 to 80/4.5 today. Farxiga ordered but not available (pt would need to have his own supply brought in). Metformin not ordered (controlled on sliding scale insulin with meals). Started on bactrim outpatient for cellulitis, now on vanco - Current meds Current Medication Order Review: Reviewed Antibiotic Activity - Pharmacy Antibiotic Review Pharmacy Antibiotic Activity: Reviewed, no change - Antibiotic Information Antibiotic Review Info: facial cellulitis: vancomycin 1.25 g Q10h --> trough today at 1300. COPD exacerbation: azithromycin 250 mg PO daily (plus prednisone 40 mg daily)
[2022-12-14] MEDS: Insulin Aspart 300 UNITS/3 ML PEN SC ×2 (12:01→17:00)
[2022-12-14 13:37] LABS: Vancomycin, Trough 18.4 ug/mL (10.0-20.0)
--- NOTE | 2022-12-14 14:34 | PDOC.CMPRO ---
- If Service Date Differs Date of service: 12/14/22 Time of Service: 14:34 Care Management Progress Note S/O: Pranav remains acute in the ICU at this time, pulmonary consult completed today as well as ECHO; awaiting treatment plan updates. He is being trialed on room air this afternoon. [facility] RN CM referral faxed as discussed. Pranav remains pleasant and talkative in interaction, CM continues to follow. A: 62 year old male admitted to [facility] P: Pranav will return home when ready per MD. He will follow up with his PCP and plan of care as prescribed, and transport via private vehicle with his . CM completed [facility] RN CM referral and continues to follow.
--- NOTE | 2022-12-14 15:30 | W.PM.PROGNOT ---
Date of Service Date of service: 12/14/22 Time of Service: 15:39 Assessment and Plan Assessment and plan (1) Acute respiratory failure: Status: Acute Assessment and plan: Etiology; combination of CHF and COPD. CTA chest w/o pulmonary emboli and no acute process noted. CXR w/o acute process. Now resolving and on RA. Cont nebs and Symbicort. He was given a dose of IV solumedrol at [facility]. Will hold BiPAP tonight. He will be following up with Dr Cary and will most certainly qualify for a noninvasive ventilatory device d/t his significant CO2 retention. (2) Congestive heart failure: Status: Chronic Assessment and plan: Previous NC Diuresing well. Cont IV lasix 80mg daily and spironolactone tomorrow. Planning on home tomorrow and will continue oral lasix and his spironolactone. He could likely stop lasix in near future if adherant to a low Na diet. Cont lisinopril. Echocardiogram: Normal left ventricular wall thickness and chamber size.? Estimated ejection fraction is 55 to 60%.? Wall motion is normal (3) PALMA (nonalcoholic steatohepatitis): Status: Acute Assessment and plan: Mild transaminitis. (4) COPD (chronic obstructive pulmonary disease): Status: Chronic Assessment and plan: As above. (5) Facial laceration: Status: Acute Assessment and plan: Repaired in ED. (6) Troponin level elevated: Status: Acute Assessment and plan: Troponins of 207 > 129 at [facility]. Troponins at [facility]: 3742 > 3192 > 3203 > 2726 > 1808. Discussed with cardiology at [facility]. They agreed with initiating ACS protocal with heparin drip. Because the coag analyzer was down, Lovenox 1mg/kg Q12H initiated instead. NSTEMI type II. Demand ischemia d/t respiratory failure. Echocardiogram as above. If stabilizes and shows no urgent need for cardiac catheterization, nuclear med stress test when stabilizes. (7) Facial cellulitis: Status: Acute Assessment and plan: Improving erythema. There are furuncles on the left jawline/neck that could be a source. Received a dose of vanocmycin 1500 mg IV at [facility]. WBC count has decreased. Pharmacy to dose further vanocmycin. Blood cultures obtained here and are negative to date Planning on continuing previously prescribed Bactrim when discharged. (8) Tinea cruris: Status: Acute Assessment and plan: Also likely tinea shelton and tinea of chest wall. Nystatin powder to groin, cream to chest. He would benefit from selsun shampoo to bearded area. (9) Diabetic ulcer of ankle: Status: Acute Assessment and plan: Healed. Skin care. Control glucose and edema. Subjective Subjective Patient reports: no new complaints, feels better, tolerating a regular diet and afebrile; denies nausea, vomiting or shortness of breath Exam Narrative Exam Narrative: Sitting in chair eating. Interactive. Const General: no acute distress Nutritional Appearance: obese HENMT Head: abrasion and other (Right periorbital ecchymosis) Face and sinus: abrasion and laceration Eyes General: appearance normal, both eyes and all related structures Sclera: sclerae normal Neck Neck: nontender and other (General normal motion noted. ) Resp Effort & Inspection: normal respiratory effort Auscultation: diminished lung sounds, no rales, no rhonchi and no wheezes Cardio Rate: regular rate Rhythm: regular rhythm Heart Sounds: S1 normal and S2 normal GI Inspection: obesity Palpation: soft Auscultation: normal bowel sounds General: other (Mao catheter present) Skin General skin exam: dry skin (ears) and erythema (left side of face/improved) Lesions: lesion noted (left jaw line with pustule(s).) Rashes: other (depigmented, circumferential lesions of chest wall. ) Wounds: wounds noted (Healed diabetc ulcers of ankles. ) Neuro General: no focal motor deficits Cranial Nerves: facial strength normal Extrem General: no pedal edema and no calf tenderness Psych Appearance: grossly normal Mental Status: mental status grossly normal Speech and Movement: speech clear Mood: congruent mood Affect: normal affect Objective Last Vital Signs Temp 37.5 C 12/14/22 12:25 Pulse 105 H 12/14/22 14:00 Resp 20 12/14/22 14:01 BP 122/81 12/14/22 14:00 Pulse Ox 89 L 12/14/22 14:01 Laboratory Results - last 24 hr 12/13/22 12/14/22 12/14/22 16:25 06:00 06:00 WBC 10.84 H RBC 4.62 Hgb 13.6 Hct 44.1 MCV 96 H MCH 29.4 MCHC 30.8 L RDW 14.6 H Plt Count 226 MPV 10.2 Immature Gran % 0.6 Neutrophils % 72.5 Lymphocytes % 16.8 Monocytes % 8.7 Eosinophils % 1.0 Basophils % 0.4 Nucleated RBC % 0.0 Absolute Neutrophils 7.86 H Absolute Lymphocytes 1.82 Absolute Monocytes 0.94 H Absolute Eosinophils 0.11 Absolute Basophils 0.04 Sodium 140 Potassium 3.7 Chloride 98 Carbon Dioxide 40.4 H Anion Gap 1.6 L BUN 23 H Creatinine 1.1 Est GFR (CKD-EPI 2020) 76.37 Glucose 108 H Calcium 9.1 Total Bilirubin 0.6 AST 61 H ALT 54 Alkaline Phosphatase 104 Troponin I 2726 H* 1808 H* Total Protein 7.2 Albumin 3.0 L Vancomycin Trough 12/14/22 13:00 WBC RBC Hgb Hct MCV MCH MCHC RDW Plt Count MPV Immature Gran % Neutrophils % Lymphocytes % Monocytes % Eosinophils % Basophils % Nucleated RBC % Absolute Neutrophils Absolute Lymphocytes Absolute Monocytes Absolute Eosinophils Absolute Basophils Sodium Potassium Chloride Carbon Dioxide Anion Gap BUN Creatinine Est GFR (CKD-EPI 2020) Glucose Calcium Total Bilirubin AST ALT Alkaline Phosphatase Troponin I Total Protein Albumin Vancomycin Trough 18.4 Time Spent with Patient Time Spent with Patient: 25-34 minutes Time was spent: preparing to see the patient(eg.review tests), ordering medications,tests, procedures and indepentently interpreting results
[2022-12-14] MEDS: Atorvastatin 40 MG TAB 80 MG PO (20:27)
[2022-12-14] MEDS: Nicotine 21 MG/24 HR PATCH TD (21:18)
[2022-12-15] VITALS (19 sets, daily range): BP systolic 117–143; BP diastolic 60–94; PULSE 74–117; RESP 4–30; TEMP 36.8–37.2; O2SAT 80–93
[2022-12-15] MEDS: VANCOMYCIN/WATER (PEG) 1.25 GM/250 ML BAG IV (04:30)
--- NOTE | 2022-12-15 07:11 | W.PULMCC ---
General Date of Service Date of service: 12/15/22 Time of Service: 07:11 Reason for Admission to ICU: Hypoxic and hypercapnic respiratory failure Assessment and Plan Assessment and plan (1) NSTEMI (non-ST elevated myocardial infarction): Status: Acute (2) Respiratory failure with hypoxia and hypercapnia: Status: Acute (3) Diabetic ulcer of ankle: Status: Acute (4) Pulmonary hypertension: Status: Acute (5) Facial cellulitis: Status: Acute (6) COPD exacerbation: Status: Acute (7) CHF exacerbation: Status: Acute (8) PALMA (nonalcoholic steatohepatitis): Status: Acute (9) Leukocytosis: Status: Acute Assessment and plan: This is a 62 yo admitted to the ICU for hypoxic and hypercapnic respiratory failure due to COPD and CHF exacerbation as well as a facial cellulitis. His CO2 retention is chronic but should be evaluated as an outpatient to assess the need for NIV. He tolerated the night without BiPAP and is safe to go home without NIV from the hospital. I have set up a f/u visit with myself to thoroughly evaluate this. Based on his echo he does have pulmonary hypertension (PAP around 45mmHg) which is likely combined group 2 and 3 given his cardiac and pulmonary history. Recommendations Pulmonary: Hypoxic and Hypercapnic respiratory failure - wean O2 needs - did fine without BiPAP overnight - evaluation as an outpatient in 2-4 weeks for NIV needs with me COPD exacerbation - prednisone 40mg for 5 days - azithromycin for 5 days - Duonebs QID - Symbicort 80 - Spiriva - I will sent inhaler Rx's to his pharmacy Cardiac: NSTEMI - received therapeutic [place] [facility] [place] - no urgent cath need - MPI when stable - no need to continue trending troponins CHF Exacerbation - transition to home Lasix and spironolactone - daily weights at home Pulmonary Hypertension, group 2 and 3 - optimization of cardiac and pulmonary disease Renal: No acute concerns - strict I/O's I&O: Intake & Output 12/12/22 12/13/22 12/14/22 12/15/22 23:59 23:59 23:59 23:59 Intake Total 64.685 / 64.685 1537.736 / 2453.662 7131 / 2510 Output Total 2600 / 2600 1984 1200 / 1200 Balance 64.685 / 64.685 -1062.264 / -1062.264 525 / 525 -1190 / -1190 Weight 99.3 kg 99 kg 98.5 kg Daily Fluid Goal:: negative 1L in next 24 hours GI Nutrition: PALMA - not in acute liver failure Date of Last Bowel Movement: 12/11/22 Infectious Disease: Facial cellulitis - on vanc, can be sent home on Bactrim - no growth of blood cultures - MRSA screen ordered Hematologic: Leukocytosis - due to infection Neurologic: No acute concerns Endocrine: No acute concerns Lines: PIV Code Status: Resuscitation Status Full Code Subjective Critical and life-threatening events over the past 24 hours: Pranav continues to improve. He tolerated the night without BiPAP and is on room air with borderline SpO2. His echo was completed and was reassuring with an RVSP of 33mmHg, so a PAP of probably around 45mmHg (elevated) which is not overly surprising given his cardiopulmonary disease. Exam Narrative Exam Narrative: Gen: NAD, normal respiratory effort, well-nourished HENT: PERRL, abrasions and lacerations on face. hematoma right eye Chest: No respiratory distress, normal appearance of chest, clear to auscultation bilaterally, some bibasilar crackles, no wheeze Heart: regular rate and rhythym, no murmurs, rubs or gallops Abdomen: Non-distended, soft, non tender Extremities: No clubbing, compression stocking on, cyanosis, rashes Neuro: AAOx3 , non focal Psych: cooperative, appropriate mental affect Most Recent VS/Results Last Vital Signs Temp 37.2 C 12/15/22 04:30 Pulse 81 12/15/22 06:00 Resp 30 H 12/15/22 06:00 BP 140/64 12/15/22 06:00 Pulse Ox 87 L 12/15/22 06:00 Laboratory Results - last 24 hr 12/14/22 13:00 Vancomycin Trough 18.4 Review of Systems All systems reviewed & are unremarkable except as noted in HPI and below Time spent with patient Time spent in Critical Care: 45 Time spent in Critical care included: Coordination of care, Chart review, Documenting critically ill care, Time at immediate bedside, Discussing critically ill care with other medical staff and Discussing care with family members
[2022-12-15] MEDS: Normal Saline Flush 10 ML SYR (07:37)
[2022-12-15] MEDS: Albuterol/Ipratropium 3 ML UPD VIAL UPD (07:46)
[2022-12-15] MEDS: Budesonide/Formoterol 80/4.5 6.9 GM 60 PUFF INH IH (07:46)
[2022-12-15] MEDS: Tiotropium Bromide-Respimat 10 PUFF INH 2 PUFF IH (07:46)
[2022-12-15] MEDS: Ezetimibe 10 MG TAB PO (08:26)
[2022-12-15] MEDS: Spironolactone 25 MG TAB PO (08:26)
[2022-12-15] MEDS: Aspirin 81 MG CHEW PO (08:26)
[2022-12-15] MEDS: Gabapentin 600 MG TAB PO (08:26)
[2022-12-15] MEDS: Azithromycin 250 MG TAB PO (08:26)
[2022-12-15] MEDS: Metoprolol 50 MG TAB PO (08:26)
[2022-12-15] MEDS: predniSONE 20 MG TAB 40 MG PO (08:26)
[2022-12-15] MEDS: Clopidogrel 75 MG TAB PO (08:26)
[2022-12-15] MEDS: Lisinopril 5 MG TAB 2.5 MG PO (08:27)
[2022-12-15] MEDS: Nystatin POWDER 60 GM JAR TP (08:27)
[2022-12-15] MEDS: Nystatin CREAM 15 GM TUBE TP (08:32)
--- NOTE | 2022-12-15 09:19 | W.PM.DS.N ---
Date of service: 12/15/22 Time of Service: 09:19 DS: Diagnosis Discharge Diagnosis (1) NSTEMI (non-ST elevated myocardial infarction): Status: Acute Asessment and Plan: Secondary to demand ischemia from acute respiratory failure. Troponins trended downward. No EKG changes. Echocardiogram with EF of 55-60%. Wall motion is normal. Cont ASA, statin, clopidogrel (2) Respiratory failure with hypoxia and hypercapnia: Status: Acute Asessment and Plan: Will d/c on 1L supplemental O2 with activity. An appt with Dr Cary, Pulmonary Medicine/Financial Recruiter, is to be scheduled in the next 2-4 weeks. (3) Diabetic ulcer of ankle: Status: Acute Asessment and Plan: Healed. Cont good skin care with hygiene and moisturizers. Avoid pedal edema 2 gram Na diet, 2L fluid intake limit, elevation of legs and diabetes control. (4) Pulmonary hypertension: Status: Acute Asessment and Plan: Optimization of pulmonary and cardiac status. (5) Facial cellulitis: Status: Acute (6) COPD exacerbation: Status: Acute Asessment and Plan: Resolving; likely d/t staph furuncles noted. Cont Bactrim prescribed the day before admission. (7) CHF exacerbation: Status: Acute Asessment and Plan: Cont home lasix at 80mg daily. Cont spironolactone. Instructions given on daily wt and when to use extra lasix. 2 Gram Na diet. 2L fluid restriction. (8) PALMA (nonalcoholic steatohepatitis): Status: Acute Asessment and Plan: Sprionolactone. Discharge Plan Disposition Patient Disposition: Home Condition: Fair Discharge Details Reason For Visit: Acute Respiratory Failure, Cellulitis, NSTEMI Admit Date/Time: 12/12/22 16:40 Admit Provider: Paul Kc Attending Provider: Paul Kc Primary Care Provider: FIDELINA ORTIZ Hospital Course Hospital Course: This is a 62 yo male with a PMH of CHF on lasix, COPD not on supplemental O2, CAD, PALMA, liver fibrosis, DM2, Diabetic leg ulcers, tobacco abuse disorder, h/o cocaine use.? He presented to the ED at [facility] early in the AM of date of admission.? He stated he mis-judged the distance he was from a chair when he went to sit and slipped onto the floor.? He hit the right side of his face and incurred a laceration (1 above right eyebrow).? Questionable LOCC; called him 2-3 times before he answered. In the ED at [facility] he denied CP/palpitations or dizziness prior to falling.? Upon arrival his O2 saturation on RA was 78%.? He had a visit with his PCP the day prior to admission and was thought to have a left sided facial cellulitis and was started on Bactrim.? His RA O2 saturation in the office then was 83%.? It is unclear what his typical RA O2 saturation is.? He has a history of anasarca and is on 160mg lasix and 25mg spironolactone daily. Last echocardigram was in 2019; notes from the [facility] ED stated he no showed for a cardiology follow up and echo in 2020. Lab: WBC 11.6. Hgb 14.2. Na 138. K 3.8. AST 75. ALT 70. Creatinine 1.05. Troponin 207 > 129. NTProBNP 885. UDS + for THC. RAD: CTA chest w/o pulmonary emboli and no acute process noted. CXR w/o acute process. He was initiated on BiPAP; given a total of 3mg Ativan over the course of the day while at [facility], then a dose of Ketamine prior to transfer.? Upon arrival at [facility] he was obtunded and noted to actually be on CPAP rather than BIPAP; narcotized by elevated pCO2 most likely.? Changed to BiPAP and his level of consciousness improved significantly to where he was wanting to take off the mask and wanting to leave. He then described generalized soreness but no specific area of pain.? Another dose of Ketamine, 50mg IV administered, then a precedex drip initiated.? Admitted to the ICU. See Diagnosis PCP f/u in 1-2 weeks. Home Meds and New Rx's Prescriptions: New nystatin 100,000 unit/gram Cream 1,500,000 unit topical TID Qty: 0 0RF Inhaler, Assist Devices [Pocket Chamber] 1 ea miscellaneous DIRECTED Qty: 0 0RF nystatin 100,000 unit/gram Powder 6,000,000 unit topical BID Qty: 0 0RF Continued atorvastatin 80 mg Tablet 80 mg PO DAILY amitriptyline 10 mg Tablet 10 mg PO QHS baclofen 5 mg Tablet 5 mg PO 3XD PRN Rx Instructions: as needed for mucle pain clopidogrel 75 mg Tablet 75 mg PO DAILY furosemide 40 mg Tablet 80 mg PO DAILY folic acid 1 mg Tablet 1 mg PO DAILY ezetimibe 10 mg Tablet 10 mg PO DAILY metformin 500 mg Tablet 500 mg PO BID gabapentin 600 mg Tablet 600 mg PO TID trazodone 50 mg Tablet 50 mg PO QHS Rx Instructions: new script for 100 - picked up but not started? sildenafil 50 mg Tablet 50 mg PO PRN PRN sulfamethoxazole-trimethoprim 800-160 mg Tablet 1 tab PO BID spironolactone 25 mg Tablet 25 mg PO DAILY metoprolol tartrate 50 mg Tablet 50 mg PO BID aspirin 81 mg Tablet 81 mg PO DAILY lisinopril 2.5 mg Tablet 2.5 mg PO DAILY Farxiga 10 mg Tablet 10 mg PO DAILY trazodone 100 mg Tablet 100 mg PO HS No Action Spiriva Respimat 2.5 mcg/actuation mist 2 puff inhalation DAILY Qty: 4 12RF budesonide-formoterol [Symbicort] 80-4.5 mcg/actuation HFA aerosol inhaler 2 puff inhalation BID Qty: 10.2 12RF Rx Instructions: Rinse mouth after use albuterol sulfate 90 mcg/actuation HFA aerosol inhaler 2 puff INHALATION Q4H PRN (Reason: shortness of breath or wheezing) Qty: 8.5 12RF (DME) blood-glucose meter [Glucometer 3] Kit MISCELLANEOUS (DME) compression socks, large Misc MISCELLANEOUS (DME) compression socks, large Misc MISCELLANEOUS (DME) FreeStyle Lite Strips Strip MISCELLANEOUS (DME) ProChamber Spacer MISCELLANEOUS Discharge Instructions Instructions: Low-Sodium Diet (DC) Additional Instructions: To monitor your own fluid status: 1) Weigh yourself daily 2) Weigh yourself at the same time every day ? before breakfast is best. 3) Use the same scale all the time 4) Wear the same amount of clothes when you weigh yourself 5) Empty your bladder before weighing 6) Record your weight on a daily record 7) The weight at which there is just a little bit of swelling in the ankles at the end of the day is your ideal weight-try and maintain it 8) When taking diuretics avoid drinking too much in the way of fluids, even if your mouth is dry and you feel thirsty. This could counter the effect of the diuretic and dilute the body?s salts causing weakness and confusion. 9) You should drink no more than 2000 ml (8 glasses or cups) of fluid per day, or whatever amount is prescribed for you. 10) If your weight goes up by more than 2-3 pounds (1.0 kg) in one day or by 5 pounds (2.5 kg) over a week take an extra dose of lasix and call your physician. Wear compression stockings/wraps routinely. Elevate legs above heart level when at rest. Follow up appointment with Primary Care Fidelina Barone, [facility] in [place], [place]: December 17, 2022 at 3:20pm. Follow up appointment with Dr. Cary on December 29 at 3:00pm at [facility]. Activity:: Activity as Tolerated Equipment/Supplies:: No Equipment Needed Diet:: carb controlled diabetic diet Discharge Orders Discharge Orders: Discharge Order (Routine); Ordered 12/15/22 Ordered By: Paul Kc Discharge Data Discharge Date/Time-TO BE ENTERED AT DEPARTURE: 12/15/22 10:45 Discharge Comment: Pt discharged home, has ride home with sister. DS: Summary Time Spent with Patient providing and/or coordinating discharge services: Greater than 30 minutes Status at Discharge Functional status at discharge: independent ambulation Overall status at discharge: patient is progressing back to baseline Mental Status: mental status grossly normal Speech and Movement: speech clear Mood: congruent mood Affect: normal affect Exam Narrative Exam Narrative: Sitting in chair eating. Interactive. Const General: no acute distress Nutritional Appearance: obese [facility] Head: abrasion and other (Right periorbital ecchymosis) Face and sinus: abrasion and laceration Eyes General: appearance normal, both eyes and all related structures Sclera: sclerae normal Neck Neck: nontender and other (General normal motion noted. ) Resp Effort & Inspection: normal respiratory effort and able to speak in complete sentences Auscultation: diminished lung sounds, no rales, no rhonchi and no wheezes Cardio Rate: regular rate Rhythm: regular rhythm Heart Sounds: S1 normal and S2 normal GI Inspection: obesity Palpation: soft Auscultation: normal bowel sounds General: other (Spivey catheter present) Skin General skin exam: dry skin (ears) and erythema (left side of face/improved) Lesions: lesion noted (left jaw line with pustule(s).) Rashes: other (depigmented, circumferential lesions of chest wall. ) Wounds: wounds noted (Healed diabetc ulcers of ankles. ) Neuro General: no focal motor deficits Cranial Nerves: facial strength normal Extrem General: no pedal edema, no calf tenderness and other (compression stockings in place.) Psych Appearance: grossly normal Mental Status: mental status grossly normal Speech and Movement: speech clear Mood: congruent mood Affect: normal affect DS: Data Vitals/I&O Vitals and I&O: Vital Signs Temperature 36.8 C 12/15/22 07:38 Temperature Source Tympanic 12/15/22 07:38 Pulse 117 H 12/15/22 08:42 Pulse 98 H 12/15/22 08:01 Respiratory Rate 19 12/15/22 08:01 Respiratory Effort Non-Labored 12/15/22 07:38 Respiratory Depth Normal 12/15/22 07:38 Respiratory Pattern Normal 12/15/22 07:38 Blood Pressure 117/94 H 12/15/22 08:00 Blood Pressure Mean 100 12/15/22 08:00 Blood Pressure Position Supine 12/15/22 04:30 Pulse Oximetry 85 L 12/15/22 08:01 Oxygen Delivery Method Room Air 12/15/22 07:46 Oxygen Flow Rate 0 12/15/22 07:46 Fraction of Inspired Oxygen (FIO2) 40 12/14/22 08:13 Pain Level 0 12/15/22 07:38 Intake & Output 12/14/22 12/14/22 12/15/22 11:59 23:59 11:59 Intake Total 980 / 2510 1530 / 2510 310 / 310 Output Total 1081984 / 1984 1200 / 1200 Balance -105 / 525 630 / 525 -890 / -890 Weight 98.5 kg Intake: IV 500 / 770 270 / 770 10 / 10 Oral 480 / 1740 1260 / 1740 300 / 300 Output: Urine 1084 900 / 1984 1200 / 1200 Other: Urine Color Pale Yellow Yellow Urine Appearance Clear Clear Clear Urine Odor None Comment SPIVEY CATHETER IN PLACE pt has a spivey catheter placed at this time. pt has a spivey catheter placed at this time. Voiding Methods Indwelling Catheter Data Completed and Pending Labs on day of discharge: Labs from last 24 hours 12/15/22 12/14/22 17:00 13:00 Vancomycin Trough Pending 18.4 Preliminary micro results at discharge 12/12/22 19:40 Blood Culture - Preliminary Blood NO GROWTH 48 HOURS 12/12/22 19:40 Blood Culture - Preliminary Blood NO GROWTH 48 HOURS PFSH All Active Problems Pulmonary hypertension (Acute) Leukocytosis (Acute) CHF exacerbation (Acute) COPD exacerbation (Acute) Respiratory failure with hypoxia and hypercapnia (Acute) NSTEMI (non-ST elevated myocardial infarction) (Acute) Diabetic ulcer of ankle (Acute) Tinea cruris (Acute) Facial cellulitis (Acute) Troponin level elevated (Acute) Facial laceration (Acute) COPD (chronic obstructive pulmonary disease) (Chronic) PALMA (nonalcoholic steatohepatitis) (Acute) Congestive heart failure (Chronic) Acute respiratory failure (Acute) Social History Smoking/Tobacco Use Status: Current every day Smoking risk assessment performed?: Yes Time Spent with Patient Time Spent with Patient: 45-69 minutes Time was spent: preparing to see the patient(eg.review tests), referring, communicating with other health home health care coordinator, indepentently interpreting results and counseling the patient
--- NOTE | 2022-12-15 09:46 | PDOC.CMDIS ---
- If Service Date Differs Date of service: 12/15/22 Time of Service: 09:46 LACE Index Scoring Tool - Questions: Length of Stay (in days): 3 Acuity (Admit via E.D.?): No E.D. Visits: 0 - Answers: Total Score: 3 Risk of Readmission: Low Risk Care Management Discharge Reason for Hospitalization: Acute respiratory failure, Cellulitis, NSTEMI Discharge Plan: Pranav is discharged home with a plan to follow up with community providers and discharge plan of care as prescribed. He is transported via private vehicle with family. Pranav will follow up with Dr. Cary on 12/29/22, as scheduled. Patient/Family Education Needs: Review discharge instructions, limitations, medications and plan to follow up with community providers. Discuss ask me three.
--- NOTE | 2022-12-15 11:01 | NUR.NOTE ---
Patient discharged today at 10:45. Patient was provided discharge instructions, medications and follow up appointments. Pt had no questions at this time. Pt will be receiving home oxygen from [facility] today (12/15/22) or tomorrow (12/16/22). Dr. Kc is aware of this. Pt accepted instructions and understood discharge instructions.
== END 2022-12-15 10:45 | disposition home or self-care (01) | DRG 280 ==
PROVIDERS: Family Medicine; Admitting Provider Family Medicine; PCP Registered Nurse; Visit Provider Family Medicine
DX: I21.A1 Myocardial infarction type 2 (principal); J96.01 Acute respiratory failure with hypoxia; J96.02 Acute respiratory failure with hypercapnia; J44.1 Chronic obstructive pulmonary disease with (acute) exacerbation; L03.211 Cellulitis of face; I25.2 Old myocardial infarction; K75.81 Nonalcoholic steatohepatitis (NASH); I50.9 Heart failure, unspecified; R74.01 Elevation of levels of liver transaminase levels; B35.6 Tinea cruris; I25.10 Atherosclerotic heart disease of native coronary artery without angina pectoris; K74.00 Hepatic fibrosis, unspecified; E11.622 Type 2 diabetes mellitus with other skin ulcer; F17.210 Nicotine dependence, cigarettes, uncomplicated; W18.39XA Other fall on same level, initial encounter; S01.111A Laceration without foreign body of right eyelid and periocular area, initial encounter; F14.90 Cocaine use, unspecified, uncomplicated; B35.0 Tinea barbae and tinea capitis; I27.20 Pulmonary hypertension, unspecified; D72.829 Elevated white blood cell count, unspecified
CPT/HCPCS: 36415; 80053; 82805; 87040; 94640; J1650; 80202; 83735; 84484; 85025; 85610; 85730; 93005; 93010; 93306; 94660; 94664; 99223; 99232; 99233; 99239; J1940; J3490; J7512; J7620

== ENCOUNTER 2023-12-31 09:10 | Day surgery (SDC) | payer MEDICAID, SELFPAY ==
[2023-12-31 09:41] VITALS: BP 124/67; PULSE 88; RESP 16; TEMP 36.4; O2SAT 96
--- NOTE | 2023-12-31 10:12 | ANES.PREOP_ITS ---
General Info Date of Service Date Performed: 12/31/23 Height: 5 ft 10 in Weight: 103 kg Body Mass Index (BMI): 32.5 Surgical Procedure: Operation Date: 12/31/23 11:25 Proposed Procedure Side Surgeon p Cataract Extraction with IOL Implant Left Paul Nolan MD Meds Allergies and Home Medications Allergies Allergy/AdvReac Type Severity Reaction Status Date / Time No Known Allergies Allergy Verified 12/31/23 10:00 Home Medication Medication Instructions Recorded amitriptyline 10 mg tablet 10 mg PO QHS 12/12/22 aspirin 81 mg tablet 81 mg PO DAILY 12/12/22 atorvastatin 80 mg tablet 80 mg PO DAILY 12/12/22 baclofen 5 mg tablet 5 mg PO 3XD PRN 12/12/22 blood sugar diagnostic (FreeStyle 12/12/22 Lite Strips) blood-glucose meter 12/12/22 clopidogrel 75 mg tablet 75 mg PO DAILY 12/12/22 compression socks, large 12/12/22 dapagliflozin propanediol 10 mg 10 mg PO DAILY 12/12/22 tablet (Farxiga) ezetimibe 10 mg tablet 10 mg PO DAILY 12/12/22 gabapentin 600 mg tablet 600 mg PO TID 12/12/22 inhalational spacing device 12/12/22 (ProChamber) sildenafil 50 mg tablet 50 mg PO PRN PRN 12/12/22 spironolactone 25 mg tablet 25 mg PO DAILY 12/12/22 trazodone 100 mg tablet 100 mg PO HS 12/12/22 Inhaler, Assist Devices [Pocket 1 ea miscellaneous DIRECTED ##0 12/15/22 Chamber] albuterol sulfate 90 mcg/actuation 2 puff inhalation Q4H PRN 12/15/22 aerosol inhaler shortness of breath or wheezing #8.5 grams budesonide-formoterol HFA 80 2 puff inhalation BID #10.2 grams 12/15/22 mcg-4.5 mcg/actuation aerosol inhaler (Symbicort) nystatin 100,000 unit/gram topical 1,500,000 unit topical TID #0 grams 12/15/22 cream nystatin 100,000 unit/gram topical 6,000,000 unit topical BID #0 grams 12/15/22 powder torsemide 20 mg tablet 80 mg PO DAILY 02/19/23 dulaglutide 1.5 mg/0.5 mL 1.5 mg subcut QWEEK 05/20/23 subcutaneous pen injector (Trulicity) metoprolol tartrate 50 mg tablet 25 mg PO BID 05/20/23 tiotropium bromide 2.5 See Rx Instructions .Route 11/22/23 mcg/actuation mist for inhalation .COMPLEX #4 grams (Spiriva Respimat) Current Visit Medications: Current Medications Generic Name Dose Route Start Last Admin Trade Name Freq PRN Reason Stop Dose Admin Acetaminophen 1,000 mg 12/31/23 06:00 Acetaminophen 500 Mg Tab PO 01/30/24 05:59 Q4H PRN PRN Balanced Salt Solution 500 ml 12/31/23 06:00 Balanced Salt Soln.-Plus 500 Ml Bag OP 01/30/24 05:59 DIRECTED DEEPTHI Miscellaneous Medication 0 ml 12/31/23 06:00 Prednisolone 1%, Moxifloxacin 0.5%, Bromfenac 0.09% 5ml Btl OS 01/30/24 05:59 DIRECTED DEEPTHI Miscellaneous Medication 0 ml 12/31/23 06:00 12/31/23 10:08 Tropicam./Phenyleph. (1/2.5%) 10 Ml Btl OS 01/30/24 05:59 1 drp DIRECTED DEEPTHI Administration Tetracaine HCl 0 ml 12/31/23 06:00 Tetracaine 0.5% 4 Ml Btl OS 01/30/24 05:59 DIRECTED DEEPTHI PFSH Active Problems Active Problems: Problem Status Onset Code Nuclear age-related cataract, left eye H25.12 Nicotine dependence, cigarettes, uncomplicated F17.210 Respiratory failure with hypoxia and hypercapnia J96.91, J96.92 Hypercapnia R06.89 Pulmonary hypertension I27.20 Tinea cruris B35.6 Facial laceration S01.81XA COPD (chronic obstructive pulmonary disease) J44.9 PALMA (nonalcoholic steatohepatitis) K75.81 Congestive heart failure I50.9 Medical History Medical History Hx of myocardial infarction 2003, 12/2022-Follows up with cardiology Dr. Portillo in [place] 10/2023 A-fib Type 2 diabetes mellitus ELBERT (obstructive sleep apnea) Non-pressure chronic ulcer left lower leg, limited to breakdown skin Nicotine dependence Low back pain Liver fibrosis Lesion of ulnar nerve Iron deficiency Insomnia Inflammation of sacroiliac joint Impaired skin integrity Hypertensive disorder HLD (hyperlipidemia) Fibromyositis Coronary arteriosclerosis in [place] artery Cataract Blister Bilateral leg edema Ascites Aortic valve stenosis Aortic valve insufficiency Surgical History Surgical History H/O heart artery stent 2003 Tobacco Smoking/Tobacco Use Status: Current every day Tobacco Type: cigarettes Alcohol Alcohol Intake: current Alcohol intake frequency: holidays/special occasions only Substance Use Substance use: Daily Substance use type: marijuana Details: marijuana yesterday afternoon Vital Signs and Lab Results Vital Signs Most Recent Vital Signs in EMR: Most Recent Vital Signs Temp Pulse Resp BP Pulse Ox 36.4 C L 88 16 124/67 96 12/31/23 09:41 12/31/23 09:41 12/31/23 09:41 12/31/23 09:41 12/31/23 09:41 Lab Results Blood Type / Crossmatch: No Data to Display Complete Blood Count: No Data to Display Complete Metabolic Panel: No Data to Display Liver Function Panel: No Data to Display Coagulation Panel: No Data to Display Cardiac Panel: No Data to Display Arterial Blood Gas: No Data to Display Venous Blood Gas: No Data to Display Pancreas Panel: No Data to Display Thyroid Panel: No Data to Display Infectious Disease: No Data to Display Blood Cultures: 2 No Data to Display Toxicology Panel: No Data to Display Anesthesia Assessment and Plan Anesthesia History Personal History: No History of Anesthesia Complications Family History: Family History Unknown Exercise Tolerance Exercise Tolerance: Metabolic Equivalents<4 Pertinent Negatives Pertinent Negatives: No Symptoms of GERD Cardiac & Pulmonary Exam Cardiac Exam: Normal S1/S2 Heart Sounds Pulmonary Exam: Clear Bilateral Breath Sounds Implantable Cardiac Device Does patient have a Pacemaker or an ICD?: No Airway Exam Known Difficult Airway: No Mallampati Class: 3 Mouth Opening: Normal (> 3cm) Thyromental Distance: Greater than 3 cm Neck Range of Motion: Full ROM Neck Circumference: Normal Teeth Condition: Normal Dentition ASA Classification ASA Score: ASA 3 Emergency Case?: No NPO Status NPO Status: NPO Clears >2 hours, Solids >8 hours Anesthesia Plan Resuscitation Status: Full Code Anesthesia Technique: MAC Anesthesia Airway Planned: Natural Airway Monitors Used: Standard Monitors Preoperative Comments:: Extremely anxious. Gave mko at 1036
[2023-12-31 10:37] VITALS: BMI 32.5
[2023-12-31] MEDS: Balanced Salt Soln.-PLUS 500 ML BAG OP (11:53)
[2023-12-31] MEDS: Tetracaine 0.5% 4 ML BTL OS (11:54)
[2023-12-31] MEDS: Duovisc Viscoelastic System EACH 1 EACH ×2 (11:55→11:58)
[2023-12-31] MEDS: Lidocaine 1% Pres-Free 5 ML VIAL (11:56)
[2023-12-31] MEDS: Trypan Blue 0.06% 0.5 ML SYR (11:58)
[2023-12-31] MEDS: Povidone-Iodine Ophth 30 ML BTL (12:00)
[2023-12-31 12:16] VITALS: BP 143/64; PULSE 79; RESP 18; TEMP 36.2; O2SAT 93
--- NOTE | 2023-12-31 12:17 | W.PM.DSUDISC ---
Date of service: 12/31/23 Time of Service: 12:18 Discharge Plan Disposition Patient Disposition: Home Discharge Details Attending Provider: Paul Nolan Primary Care Provider: KEN ORTIZ Home Meds and New Rx's Prescriptions: No Action Trulicity 1.5 mg/0.5 mL pen injector 1.5 mg subcut QWEEK torsemide 20 mg tablet 80 mg PO DAILY Patient Comments: 1 tablet instead of full dose of 4 tablets per patient budesonide-formoterol [Symbicort] 80-4.5 mcg/actuation HFA aerosol inhaler 2 puff inhalation BID Qty: 10.2 12RF Rx Instructions: Rinse mouth after use albuterol sulfate 90 mcg/actuation HFA aerosol inhaler 2 puff INHALATION Q4H PRN (Reason: shortness of breath or wheezing) Qty: 8.5 12RF Spiriva Respimat 2.5 mcg/actuation mist See Rx Instructions .ROUTE .COMPLEX Qty: 4 12RF Dose Instruction: INHALE 2 PUFFS BY MOUTH DAILY Rx Instructions: INHALE 2 PUFFS BY MOUTH DAILY atorvastatin 80 mg Tablet 80 mg PO DAILY amitriptyline 10 mg Tablet 10 mg PO QHS baclofen 5 mg Tablet 5 mg PO 3XD PRN Rx Instructions: as needed for mucle pain clopidogrel 75 mg Tablet 75 mg PO DAILY (DME) blood-glucose meter [Glucometer 3] Kit MISCELLANEOUS (DME) compression socks, large Misc MISCELLANEOUS (DME) FreeStyle Lite Strips Strip MISCELLANEOUS ezetimibe 10 mg Tablet 10 mg PO DAILY Patient Comments: pt says not taking (DME) ProChamber Spacer MISCELLANEOUS gabapentin 600 mg Tablet 600 mg PO TID sildenafil 50 mg Tablet 50 mg PO PRN PRN spironolactone 25 mg Tablet 25 mg PO DAILY aspirin 81 mg Tablet 81 mg PO DAILY dapagliflozin propanediol [Farxiga] 10 mg Tablet 10 mg PO DAILY trazodone 100 mg Tablet 100 mg PO HS nystatin 100,000 unit/gram Cream 1,500,000 unit topical TID Qty: 0 0RF Inhaler, Assist Devices [Pocket Chamber] 1 ea miscellaneous DIRECTED Qty: 0 0RF nystatin 100,000 unit/gram Powder 6,000,000 unit topical BID Qty: 0 0RF metoprolol tartrate 50 mg tablet 25 mg PO BID Discharge Instructions Stand Alone Forms: DSU Post-Op Cataract, Sulma Larry (DSU) Discharge Orders Discharge Orders: Discharge Order (Routine); Ordered 12/31/23 Ordered By: Paul Nolan DS: Diagnosis Discharge Diagnosis (1) Nuclear age-related cataract, left eye: Status: Resolved
--- NOTE | 2023-12-31 12:19 | W.PM.OP ---
Date of service: 12/31/23 Time of Service: 12:19 Operative Note Operative Note DATE OF PROCEDURE: 12/31/23 PRE-OP DIAGNOSIS: Dense nuclear cataract, left eye POST-OP DIAGNOSIS: same PROCEDURE: Cataract extraction using phacoemulsification with intraocular lens implant, left eye SURGEON: Paul Nolan ANESTHESIA TYPE: Local By Surgeon and MAC Refer to Anesthesia Record PATHOLOGY: none sent COMPLICATIONS: None Patient was transported to: same day Patient's condition: stable Implants: Sami Clareon [id number] Indications: Progressive decreased vision due to cataract, left eye Procedure Description: CATARACT SURGERY OPERATIVE REPORT PREOPERATIVE DIAGNOSIS: Dense nuclear cataract, left eye POSTOPERATIVE DIAGNOSIS: Same OPERATION: Cataract extraction using phacoemulsification with posterior chamber intraocular lens implant, left eye. IOL: IOL Garage [employer] Service Technician/Model: Sami Clareon [id number] IOL Power: + 19.0 diopters IOL Serial Number: [id number] Optic Diameter: 6.0mm Haptic/Overall Diameter: 13.0mm PHACO INFO: Sami RazorGatorurion Vision System with OZil and Active Fluidics Cumulative Dispersed Energy (CDE): 32.84 seconds SURGEON: Paul Nolan MD, BARBARA ANESTHESIA: Monitored Anesthesia Care (MAC), with local sub-tenon's anesthetic infiltration COMPLICATIONS: None SPECIMENS: None INDICATIONS FOR PROCEDURE: The patient is a 63-year-old male with history of diminished visual acuity in his left eye secondary to the development of dense nuclear cataract. He is significantly symptomatic that he desires cataract surgery and attempt to improve and maximize his vision. The option of cataract surgery was offered to the patient and he wished to proceed. PROCEDURE: The correct surgical eye was identified and marked as the left eye and the pupil was dilated in the preoperative area using mydriatics and cycloplegics. The dilated pupil size was 5.0 mm. Oral sedation was administered in the form of an Imprimis MKO Melt (midazolam 3mg/ketamine 25mg/ondansetron 2mg). He was extremely anxious. The patient was brought to the operating room where cardiopulmonary monitoring was instituted and surgical time-out was performed, confirming the correct operative eye and IOL power. Topical anesthesia was administered and ophthalmic povidone-iodine 5% was instilled into the conjunctival fornices. The apolonia-ocular area was prepped with Betadine 10% solution and draped in the usual sterile fashion for intraocular surgery, including an aperture drape. A Tegaderm transparent film dressing was cut in half and used to cover the lashes and lid margins. Care was taken to sequester the lashes and lid margins under the Tegaderm dressing. A lid speculum was placed between the lids of the operative eye and the Sami LuxOR Revalia operating microscope was maneuvered into position. Jing scissors were then used to make a conjunctival buttonhole approximately 6mm posterior to the limbus in the inferonasal quadrant. Blunt dissection was carried out to expose bare sclera, and a blunt-tipped sub-tenon?s anesthesia cannula was introduced and passed posteriorly along the globe where non-preserved plain lidocaine was injected into posterior sub-Tenon?s space. A sideport knife was used to make a paracentesis port. VisionBlue was injected into the anterior chamber and allowed to sit for 20 seconds. Intraocular phenylephrine/lidocaine was injected into the anterior chamber. The anterior chamber was then filled with viscoelastic. A keratome knife was used construct a two-plane clear corneal tunnel extending 2.0mm into clear cornea. A flap was raised on the anterior capsule and capsulorhexis forceps were used to complete a continuous curvilinear capsulorhexis of 4.8 mm. Capsulorhexis was challenging due to constant patient movement. Balanced salt solution was then used to perform cortical cleaving hydrodissection and nuclear hydrodelineation until the lens could be freely rotated within the capsular bag. The lens nucleus was then disassembled and removed within the capsular bag and iris plane using phacoemulsification. Additional dispersive viscoelastic was injected into the anterior chamber intermittently to protect the corneal endothelium due to the dense nucleus. Residual cortical material was removed using the irrigation/aspiration handpiece. The posterior capsule was carefully polished to remove as much residual lens epithelial cells as safely possible. The capsular bag was then inflated and the anterior chamber deepened with viscoelastic. The lens implant described above was inserted into the capsular bag using the Sami Autonome Injector. A Kuglen hook was used to dial the IOL into position. Residual viscoelastic was then removed first from posterior to the IOL, then from the anterior chamber using the I/A handpiece. The lens implant was noted to center nicely within the capsular bag. The incisions were stromally hydrated, and the anterior chamber was reformed using BSS. Then 0.5cc of moxifloxacin 1.0mg/ml were injected into the capsular bag and anterior chamber. The incisions were checked with a Weck spear and found to be secure. Several drops of ophthalmic povidone-iodine 5% were then applied to the eye followed by two drops of combination steroid/NSAID/antibiotic solution. The drapes were removed and a clear plastic protective eye shield was placed over the eye. The patient was then returned to Same Day Surgery in stable condition.
--- NOTE | 2023-12-31 12:32 | W.ANESPOSTOP ---
Postoperative Evaluation Date, Time and Location Date Performed: 01/07/24 Time Performed: 12:32 Patient Location: Day Surgery Unit Vital Signs Most Recent Imported Vital Signs: Most Recent Vital Signs Temp Pulse Resp BP Pulse Ox 36.2 C L 79 18 143/64 H 93 12/31/23 12:16 12/31/23 12:16 12/31/23 12:16 12/31/23 12:16 12/31/23 12:16 Pain Score Most Recent Pain Score: Most Recent Pain Score Pain Level 0 12/31/23 12:16 Assessment Mental Status: Awake (Alert & Oriented to Patient Baseline) Airway and Respiratory Function: Patent airway with normal (patient baseline) respiratory exam Cardiovascular Function: Hemodynamically Stable Hydration Status: Adequately Hydrated Nausea & Vomiting: No Nausea or Vomiting Pain: Pt. Denies Any Pain Peripheral Nerve Block: Patient did not receive a nerve block
[2023-12-31 12:43] VITALS: BP 132/64; PULSE 86; RESP 18; TEMP 36.6; O2SAT 93
== END 2023-12-31 12:51 | disposition home or self-care (01) ==
LOC: SUR 09:12
PROVIDERS: PCP Registered Nurse; Visit Provider Ophthalmology
PROC: (CPT 66984; principal; 2023-12-31 11:15)
DX: H25.12 Age-related nuclear cataract, left eye (principal); J44.9 Chronic obstructive pulmonary disease, unspecified; I27.20 Pulmonary hypertension, unspecified; F17.210 Nicotine dependence, cigarettes, uncomplicated
CPT/HCPCS: 66984; 00123; V2632; J2003

== ENCOUNTER 2024-01-14 08:36 | Day surgery (SDC) | payer MEDICAID, SELFPAY ==
[2024-01-14 09:24] VITALS: BP 106/64; PULSE 88; RESP 18; TEMP 36.3; O2SAT 98
--- NOTE | 2024-01-14 10:04 | ANES.PREOP_ITS ---
General Info Date of Service Date Performed: 01/14/24 Height: 5 ft 10 in Weight: 102.2 kg Body Mass Index (BMI): 32.3 Surgical Procedure: Operation Date: 01/14/24 10:40 Proposed Procedure Side Surgeon p Cataract Extraction with IOL Implant Right Paul Nolan MD Meds Allergies and Home Medications Allergies Allergy/AdvReac Type Severity Reaction Status Date / Time No Known Allergies Allergy Verified 01/14/24 09:15 Home Medication Medication Instructions Recorded amitriptyline 10 mg tablet 10 mg PO QHS 12/12/22 aspirin 81 mg tablet 81 mg PO DAILY 12/12/22 atorvastatin 80 mg tablet 80 mg PO DAILY 12/12/22 baclofen 5 mg tablet 5 mg PO 3XD PRN 12/12/22 blood sugar diagnostic (FreeStyle 12/12/22 Lite Strips) blood-glucose meter 12/12/22 clopidogrel 75 mg tablet 75 mg PO DAILY 12/12/22 compression socks, large 12/12/22 dapagliflozin propanediol 10 mg 10 mg PO DAILY 12/12/22 tablet (Farxiga) ezetimibe 10 mg tablet 10 mg PO DAILY 12/12/22 gabapentin 600 mg tablet 600 mg PO TID 12/12/22 inhalational spacing device 12/12/22 (ProChamber) sildenafil 50 mg tablet 50 mg PO PRN PRN 12/12/22 spironolactone 25 mg tablet 25 mg PO DAILY 12/12/22 trazodone 100 mg tablet 100 mg PO HS 12/12/22 Inhaler, Assist Devices [Pocket 1 ea miscellaneous DIRECTED ##0 12/15/22 Chamber] albuterol sulfate 90 mcg/actuation 2 puff inhalation Q4H PRN 12/15/22 aerosol inhaler shortness of breath or wheezing #8.5 grams budesonide-formoterol HFA 80 2 puff inhalation BID #10.2 grams 12/15/22 mcg-4.5 mcg/actuation aerosol inhaler (Symbicort) nystatin 100,000 unit/gram topical 1,500,000 unit topical TID #0 grams 12/15/22 cream nystatin 100,000 unit/gram topical 6,000,000 unit topical BID #0 grams 12/15/22 powder torsemide 20 mg tablet 80 mg PO DAILY 02/19/23 dulaglutide 1.5 mg/0.5 mL 1.5 mg subcut QWEEK 05/20/23 subcutaneous pen injector (Trulicity) metoprolol tartrate 50 mg tablet 25 mg PO DAILY 05/20/23 tiotropium bromide 2.5 See Rx Instructions .Route 11/22/23 mcg/actuation mist for inhalation .COMPLEX #4 grams (Spiriva Respimat) Current Visit Medications: Current Medications Generic Name Dose Route Start Last Admin Trade Name Freq PRN Reason Stop Dose Admin Acetaminophen 1,000 mg 01/14/24 06:00 Acetaminophen 500 Mg Tab PO 02/13/24 05:59 Q4H PRN PRN Balanced Salt Solution 500 ml 01/14/24 06:00 Balanced Salt Soln.-Plus 500 Ml Bag OP 02/13/24 05:59 DIRECTED DEEPTHI Miscellaneous Medication 0 ml 01/14/24 06:00 Prednisolone 1%, Moxifloxacin 0.5%, Bromfenac 0.09% 5ml Btl OD 02/13/24 05:59 DIRECTED DEEPTHI Miscellaneous Medication 0 ml 01/14/24 06:00 01/14/24 09:39 Tropicam./Phenyleph. (1/2.5%) 10 Ml Btl OD 02/13/24 05:59 1 drp DIRECTED DEEPTHI Administration Tetracaine HCl 0 ml 01/14/24 06:00 Tetracaine 0.5% 4 Ml Btl OD 02/13/24 05:59 DIRECTED DEEPTHI PFSH Active Problems Active Problems: Problem Status Onset Code Nuclear age-related cataract, right eye H25.11 Nuclear age-related cataract, left eye H25.12 Nicotine dependence, cigarettes, uncomplicated F17.210 Respiratory failure with hypoxia and hypercapnia J96.91, J96.92 Hypercapnia R06.89 Pulmonary hypertension I27.20 Tinea cruris B35.6 Facial laceration S01.81XA COPD (chronic obstructive pulmonary disease) J44.9 PALMA (nonalcoholic steatohepatitis) K75.81 Congestive heart failure I50.9 Medical History Medical History Hx of myocardial infarction 2003, 12/2022-Follows up with cardiology Dr. 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 Cataract Blister Bilateral leg edema Ascites Aortic valve stenosis Aortic valve insufficiency Surgical History Surgical History H/O heart artery stent 2003 Tobacco Smoking/Tobacco Use Status: Current every day Tobacco Type: cigarettes Alcohol Alcohol Intake: current Alcohol intake frequency: holidays/special occasions only Substance Use Substance use: Daily Substance use type: marijuana Vital Signs and Lab Results Vital Signs Most Recent Vital Signs in EMR: Most Recent Vital Signs Temp Pulse Resp BP Pulse Ox 36.3 C L 88 18 106/64 98 01/14/24 09:24 01/14/24 09:24 01/14/24 09:24 01/14/24 09:24 01/14/24 09:24 Point of Care Results Point of Care Results: Finger Stick Blood Glucose 153 01/14/24 09:23 Lab Results Blood Type / Crossmatch: No Data to Display Complete Blood Count: No Data to Display Complete Metabolic Panel: No Data to Display Liver Function Panel: No Data to Display Coagulation Panel: No Data to Display Cardiac Panel: No Data to Display Arterial Blood Gas: No Data to Display Venous Blood Gas: No Data to Display Pancreas Panel: No Data to Display Thyroid Panel: No Data to Display Infectious Disease: No Data to Display Blood Cultures: No Data to Display Toxicology Panel: No Data to Display Imaging and Studies Imaging and Studies Study information below may be from another EMR and interpreted by another provider. Please see original notes in EMR for more complete details. EKG Summary: DATE/TIME OF SERVICE: 12/13/22 0837 : 1960 PERFORMING LOCATION: ICU APPROVED REPORT Exam: Resting ECG Reason for Exam: elevated troponin Patient Location: I HR:81 bpm ECG Measurements Heart Rate 81 AXIS ND 211 P 81 QRSd 193 QRS 68 QT 367 T90 QTc 426 Conclusion Sinus rhythm...normal P axis, V-rate 50- 99 Echocardiogram Summary: Date of Exam: 12/14/22 Sex: M Admission Date: 12/12/22 : 1960 Age: 62 APPROVED REPORT EXAM: Comprehensive 2D, Doppler, and color-flow Echocardiogram Patient Location: In-Patient Room/Bed: [id number] Plant Accountant: Farrah Davis RDCS (AE) Indications: Acute respiratory failure, anasarca, copd, elevated troponin, smo ker Other Information Study Quality: Adequate Conclusion Normal left ventricular wall thickness and chamber size. Estimated ejection fraction is 55 to 60%. Wall motion is normal Normal right ventricular size and systolic function Both atria are normal in size Aortic valve is sclerotic and probably trileaflet with mild regurgitation Committed right ventricular systolic pressure is 33 mmHg Anesthesia Assessment and Plan Anesthesia History Personal History: No History of Anesthesia Complications Family History: Family History Unknown Exercise Tolerance Exercise Tolerance: Metabolic Equivalents<4 Pertinent Negatives Pertinent Negatives: No Symptoms of GERD Cardiac & Pulmonary Exam Cardiac Exam: Other Pulmonary Exam: Clear Bilateral Breath Sounds Implantable Cardiac Device Does patient have a Pacemaker or an ICD?: No Airway Exam Known Difficult Airway: No Mallampati Class: 3 Mouth Opening: Normal (> 3cm) Thyromental Distance: Greater than 3 cm Neck Range of Motion: Full ROM Neck Circumference: Normal Teeth Condition: Normal Dentition ASA Classification ASA Score: ASA 3 Emergency Case?: No NPO Status NPO Status: NPO Clears >2 hours, Solids >8 hours Anesthesia Plan Resuscitation Status: Full Code Anesthesia Technique: MAC Anesthesia Airway Planned: Natural Airway Monitors Used: Standard Monitors
[2024-01-14 10:32] VITALS: BMI 32.3
[2024-01-14] MEDS: Trypan Blue 0.06% 0.5 ML SYR (10:40)
[2024-01-14] MEDS: Balanced Salt Soln.-PLUS 500 ML BAG OP (10:40)
[2024-01-14] MEDS: Duovisc Viscoelastic System EACH 1 EACH (10:41)
[2024-01-14] MEDS: Tetracaine 0.5% 4 ML BTL OD (10:41)
[2024-01-14] MEDS: Lidocaine 1% Pres-Free 5 ML VIAL (10:42)
[2024-01-14] MEDS: Povidone-Iodine Ophth 30 ML BTL (10:43)
[2024-01-14 11:07] VITALS: BP 119/69; PULSE 83; RESP 16; TEMP 36.4; O2SAT 96
--- NOTE | 2024-01-14 11:08 | W.PM.DSUDISC ---
Date of service: 01/14/24 Time of Service: 11:08 Discharge Plan Disposition Patient Disposition: Home Discharge Details Attending Provider: Paul Nolan Primary Care Provider: KEN ORTIZ Home Meds and New Rx's Prescriptions: No Action Trulicity 1.5 mg/0.5 mL pen injector 1.5 mg subcut QWEEK torsemide 20 mg tablet 80 mg PO DAILY Patient Comments: 1 tablet instead of full dose of 4 tablets per patient budesonide-formoterol [Symbicort] 80-4.5 mcg/actuation HFA aerosol inhaler 2 puff inhalation BID Qty: 10.2 12RF Rx Instructions: Rinse mouth after use albuterol sulfate 90 mcg/actuation HFA aerosol inhaler 2 puff INHALATION Q4H PRN (Reason: shortness of breath or wheezing) Qty: 8.5 12RF Spiriva Respimat 2.5 mcg/actuation mist See Rx Instructions .ROUTE .COMPLEX Qty: 4 12RF Dose Instruction: INHALE 2 PUFFS BY MOUTH DAILY Rx Instructions: INHALE 2 PUFFS BY MOUTH DAILY atorvastatin 80 mg Tablet 80 mg PO DAILY amitriptyline 10 mg Tablet 10 mg PO QHS baclofen 5 mg Tablet 5 mg PO 3XD PRN Rx Instructions: as needed for mucle pain clopidogrel 75 mg Tablet 75 mg PO DAILY (DME) blood-glucose meter [Glucometer 3] Kit MISCELLANEOUS (DME) compression socks, large Misc MISCELLANEOUS (DME) FreeStyle Lite Strips Strip MISCELLANEOUS ezetimibe 10 mg Tablet 10 mg PO DAILY Patient Comments: pt says not taking (DME) ProChamber Spacer MISCELLANEOUS gabapentin 600 mg Tablet 600 mg PO TID sildenafil 50 mg Tablet 50 mg PO PRN PRN spironolactone 25 mg Tablet 25 mg PO DAILY aspirin 81 mg Tablet 81 mg PO DAILY dapagliflozin propanediol [Farxiga] 10 mg Tablet 10 mg PO DAILY trazodone 100 mg Tablet 100 mg PO HS nystatin 100,000 unit/gram Cream 1,500,000 unit topical TID Qty: 0 0RF Inhaler, Assist Devices [Pocket Chamber] 1 ea miscellaneous DIRECTED Qty: 0 0RF nystatin 100,000 unit/gram Powder 6,000,000 unit topical BID Qty: 0 0RF metoprolol tartrate 50 mg tablet 25 mg PO DAILY Discharge Instructions Stand Alone Forms: DSU Post-Op Cataract, Sulma Larry (DSU) Discharge Orders Discharge Orders: Discharge Order (Routine); Ordered 01/14/24 Ordered By: Paul Nolan DS: Diagnosis Discharge Diagnosis (1) Nuclear age-related cataract, right eye: Status: Resolved
--- NOTE | 2024-01-14 11:09 | ROE_ITS ---
Date of service: 01/14/24 Time of Service: 11:09 Operative Note Operative Note DATE OF PROCEDURE: 01/14/24 PRE-OP DIAGNOSIS: Dense nuclear cataract, right eye POST-OP DIAGNOSIS: same PROCEDURE: Cataract extraction using phacoemulsification with intraocular lens implant, right eye SURGEON: Paul Nolan ANESTHESIA TYPE: Local By Surgeon and MAC Refer to Anesthesia Record ESTIMATED BLOOD LOSS: 0 PATHOLOGY: none sent COMPLICATIONS: None Patient was transported to: same day Patient's condition: stable Implants: Sami Clareon [id number] Indications: Progressive decreased vision due to cataract, right eye Procedure Description: CATARACT SURGERY OPERATIVE REPORT PREOPERATIVE DIAGNOSIS: Dense nuclear cataract, right eye POSTOPERATIVE DIAGNOSIS: Same OPERATION: Cataract extraction using phacoemulsification with posterior chamber intraocular lens implant, right eye. IOL: IOL Terry Cloth Cutter Hand/Model: Sami Clareon [id number] IOL Power: + 18.5 diopters IOL Serial Number: [id number] Optic Diameter: 6.0mm Haptic/Overall Diameter: 13.0mm PHACO INFO: Sami[employer]konos Softwareurion Vision System with OZil and Active Fluidics Cumulative Dispersed Energy (CDE): 30.82 seconds SURGEON: Paul Nolan MD, BARBARA ANESTHESIA: Monitored Anesthesia Care (MAC), with local sub-tenon's anesthetic infiltration COMPLICATIONS: None SPECIMENS: None INDICATIONS FOR PROCEDURE: The patient is a 63-year-old male with history of diminished visual acuity in both eyes secondary to the development of dense bilateral nuclear cataract. He is significantly symptomatic that he desires cataract surgery and attempt to improve and maximize his vision. He has already undergone cataract surgery in the left eye and now presents for cataract surgery in the right. See office notes for detailed information. PROCEDURE: The correct surgical eye was identified and marked as the right eye and the pupil was dilated in the preoperative area using mydriatics and cycloplegics. The dilated pupil size was 6.0 mm. Oral sedation was administered in the form of an Imprimis MKO Melt (midazolam 3mg/ketamine 25mg/ondansetron 2mg). . The patient was brought to the operating room where cardiopulmonary monitoring was instituted and surgical time-out was performed, confirming the correct operative eye and IOL power. Topical anesthesia was administered and ophthalmic povidone-iodine 5% was instilled into the conjunctival fornices. The apolonia-ocular area was prepped with Betadine 10% solution and draped in the usual sterile fashion for intraocular surgery, including an aperture drape. A Tegaderm transparent film dressing was cut in half and used to cover the lashes and lid margins. Care was taken to sequester the lashes and lid margins under the Tegaderm dressing. The patient had significant blepharospasm, requiring us to redo the lid draping. A lid speculum was placed between the lids of the operative eye and the Sami LuxOR Revalia operating microscope was maneuvered into position. Jing scissors were then used to make a conjunctival buttonhole approximately 6mm posterior to the limbus in the inferonasal quadrant. Blunt dissection was carried out to expose bare sclera, and a blunt-tipped sub-tenon?s anesthesia cannula was introduced and passed posteriorly along the globe where non- preserved plain lidocaine was injected into posterior sub-Tenon?s space. A sideport knife was used to make a paracentesis port. VisionBlue was injected into the anterior chamber allowed to sit for 20 seconds. Intraocular phenylephrine/lidocaine was injected into the anterior chamber. The anterior chamber was then filled with viscoelastic. A keratome knife was used to construct a two--plane clear corneal tunnel extending 2.0mm into clear cornea. A flap was raised on the anterior capsule and capsulorhexis forceps were used to complete a continuous curvilinear capsulorhexis of 5.0 mm. Balanced salt solution was then used to perform cortical cleaving hydrodissection and nuclear hydrodelineation until the lens could be freely rotated within the capsular bag. The lens nucleus was then disassembled and removed within the capsular bag and iris plane using phacoemulsification. The lens nucleus was noted to be quite dense. Additional Viscoat was used to protect the corneal endothelium. Residual cortical material was removed using the I/A handpiece. The posterior capsule was carefully polished to remove as much residual lens epithelial cells as safely possible. The capsular bag was then inflated and the anterior chamber deepened with cohesive viscoelastic. The lens implant described above was inserted into the capsular bag using the Sami Autonome Injector. A Kuglen hook was used to dial the IOL into position. Residual viscoelastic was then removed first from posterior to the IOL, then from the anterior chamber using the I/A handpiece. The lens implant was noted to center nicely within the capsular bag. The incisions were stromally hydrated, and the anterior chamber was reformed using BSS. Then 0.5cc of moxifloxacin 1.0mg/ml were injected into the capsular bag and anterior chamber. The incisions were checked with a Weck spear and found to be secure. Several drops of ophthalmic povidone-iodine 5% were then applied to the eye followed by two drops of combination steroid/NSAID/antibiotic solution. The drapes were removed and a clear plastic protective eye shield was placed over the eye. The patient was then returned to Same Day Surgery in stable condition.
[2024-01-14 11:27] VITALS: BP 119/67; PULSE 81; RESP 16; TEMP 36.4; O2SAT 96
--- NOTE | 2024-01-14 12:19 | W.ANESPOSTOP ---
Postoperative Evaluation Date, Time and Location Date Performed: 01/14/24 Time Performed: 11:15 Patient Location: Day Surgery Unit Vital Signs Most Recent Imported Vital Signs: Most Recent Vital Signs Temp Pulse Resp BP Pulse Ox 36.4 C L 81 16 119/67 96 01/14/24 11:27 01/14/24 11:27 01/14/24 11:27 01/14/24 11:27 01/14/24 11:27 Pain Score Most Recent Pain Score: Most Recent Pain Score Pain Level 0 01/14/24 11:27 Assessment Mental Status: Awake (Alert & Oriented to Patient Baseline) Airway and Respiratory Function: Patent airway with normal (patient baseline) respiratory exam Cardiovascular Function: Hemodynamically Stable Hydration Status: Adequately Hydrated Nausea & Vomiting: No Nausea or Vomiting Pain: Pt. Denies Any Pain Peripheral Nerve Block: Patient did not receive a nerve block
== END 2024-01-14 11:31 | disposition home or self-care (01) ==
LOC: SUR 08:36
PROVIDERS: PCP Registered Nurse; Visit Provider Ophthalmology
PROC: (CPT 66984; principal; 2024-01-14 10:30)
DX: H25.11 Age-related nuclear cataract, right eye (principal); I27.20 Pulmonary hypertension, unspecified; J44.9 Chronic obstructive pulmonary disease, unspecified; Z98.42 Cataract extraction status, left eye
CPT/HCPCS: 66984; 00123; V2632; J2003

== ENCOUNTER 2025-04-30 02:12 | Outpatient (CLI) | payer MEDICARE, SELFPAY ==
--- NOTE | 2025-04-30 | DI.RAD_ITS ---
Exam(s) RF BARIUM SWALLOW EXAM: RF BARIUM SWALLOW CLINICAL HISTORY: Dysphagia R13.10 Weight loss TECHNIQUE: 2D and realtime digital imaging was performed. CONTRAST MATERIAL: Thick and thin barium and barium tablet were administered. COMPARISON: No exams were available for comparison FINDINGS: The PA and lateral chest films show normal heart size and clear lung simmons. The lateral gas dispenser view of the neck is unremarkable shows prominent osteophytes projecting anteriorly. This causes mild impression on the posterior esophagus. Esophagus: The patient swallowed barium without difficulty. Noevidence for mucosal erosions. Nofold thickening. No mass is visible. Nostricture. Motility: There is a normal primary stripping wave. No tertiary contractions were noted. There is a small sliding high hiatal hernia. Moderategastroesophageal reflux was observed during the exam. IMPRESSION: Maria Luisa small sliding hiatal hernia and moderate gastroesophageal reflux. RADIATION DOSE DELIVERED: declan Garcia=16.2 mGy
[2025-04-30] MEDS: Barium Sulfate 700 MG TAB PO (11:21)
[2025-04-30] MEDS: Barium Sulfate 98% W/W 140 ML BTL PO (11:22)
[2025-04-30] MEDS: Barium Sulfate 60% W/V 355 ML BTL PO (11:24)
[2025-04-30] MEDS: Simethicone/Sod Bicarb/Cit Ac, 4 gram PACKET 1 PACKET PO (11:24)
== END 2025-04-30 02:32 ==
LOC: DI 02:12
PROVIDERS: PCP Physician Assistant; Visit Provider Student in an Organized Health Care Education/Training Program
DX: K44.9 Diaphragmatic hernia without obstruction or gangrene (principal)
CPT/HCPCS: 74221; J3490